=== PATIENT | male | born 1940 | race Caucasian/White ===

== ENCOUNTER 2016-07-22 07:23 | Day surgery (SDC) | payer MEDICARE, OTHER ==
[2016-07-22] VITALS (21 sets, daily range): BP systolic 102–169; BP diastolic 61–116
[~2016-07-22] VITALS: Ht 180.3 cm; Wt 95.3 kg
[~2016-07-22 07:23] MED LIST: ALN70T PO; ASPI-983 PO; ASPI325T32 PO; CLOP75TA PO; DCS100C PO; DNPZ10T PO; FURO-124 PO; FURO40TA4 PO; GLUC1000 PO; GLUC500T10 PO; GLUC750T PO; HYDR-757 PO; HYDR118S10 PO; LAMO100T69 PO; LEVE500T99 PO; METO-270 PO; MTP25TSR PO; OMEG-160 PO; OMG1KC PO; PARO40TA47 PO; POTA-51 PO; SIMV40TA2 PO; SIMV40TA4; SIMV40TA4 PO; WARF-48; WARF-48 PO; [UNRECOGNIZED DRUG - CODE] PO
[2016-07-22 07:53] LABS: MEAN PLATELET VOLUME 9.8 FL (7.4-10.4); RED BLOOD COUNT 4.22 10^6/uL (4.35-5.85); RED CELL DISTRIBUTION WIDTH 14.9 % (10.0-14.5); WHITE BLOOD COUNT 10.1 10^3/uL (4.3-11.0)
[2016-07-22 07:57] LABS: BILIRUBIN,URINE NEGATIVE (NEGATIVE); KETONES,URINE NEGATIVE (NEGATIVE); LEUKOCYTE ESTERASE ,URINE NEGATIVE (NEGATIVE); NITRITE,URINE NEGATIVE (NEGATIVE); PH,URINE 6 (5-9); PROTEIN,URINE 2+ (NEGATIVE); UROBILINOGEN,URINE 1 MG/DL (NORMAL)
[2016-07-22] MEDS ORDERED: NS IV 1000 ML 1,000 ML ONE (07:58)
[2016-07-22] MEDS ORDERED: proPOfol 200 MG/20 ML (DIPRIVAN) VIAL IV ONE (07:58)
[2016-07-22 08:06] LABS: INR 3.7 (0.8-1.4); PROTHROMBIN TIME PATIENT 36.9 SEC (12.2-14.7)
[2016-07-22 08:13] LABS: ALBUMIN 3.6 G/DL (3.2-4.5); BILIRUBIN,TOTAL 1.4 MG/DL (0.1-1.0); CALCIUM 8.6 MG/DL (8.5-10.1); CREATININE SERUM 1.32 MG/DL (0.60-1.30); POTASSIUM 4.1 MMOL/L (3.6-5.0); TOTAL PROTEIN 6.1 G/DL (6.4-8.2)
[2016-07-22] MEDS ORDERED: NS IV 1000 ML 1,000 ML IV SCH (08:20)
[2016-07-22] MEDS ORDERED: NS IV 1000 ML 1,000 ML IV ONE (08:30)
--- NOTE | 2016-07-22 09:05 | Diagnostic Imaging Report ---
Portable upright radiograph of the chest. INDICATION: Hypertension. Coronary artery disease. FINDINGS: The heart size is moderately enlarged. There is patchy left basilar infiltrate and/or atelectasis. Small left pleural effusion is present. This is similar to 07/09/16 exam accounting for technique differences. The right lung demonstrates no significant focal consolidation. There are multiple bilateral rib fractures with deformity seen. No pneumothorax. The mediastinum and carlos appear unremarkable. IMPRESSION: 1. Cardiomegaly without overt failure. 2. Patchy infiltrates or atelectasis in the left lung base with a small left effusion similar to 07/09/2016 exam. Dictated by: Dictated on workstation # [id number]
--- NOTE | 2016-07-22 09:07 | Cardiac Procedure Note-CS/ASA ---
Pre-Procedure Note Pre-Op Procedure Note H&P Reviewed The H&P was reviewed, patient examined and no changes noted. Date H&P Reviewed: Jul 22, 2016 Time H&P Reviewed: 09:07 Conscious Sedation Pre-Proced Time Reviewed: :07 ASA Class: 3 Airway Mallampati Classification: ([place] appropriate class) I. II. III, IV Lungs Heart ASA score ASA 1: a normal healthy patient ASA 2: a patient with a mild systemic disease (mid diabetes, controlled hypertension, obesity x ASA 3: a patient with a severe systemic disease that limits activity (angina , COPD, prior Myocardial infarction) ASA 4: a patient with an incapacitating disease that is a constant threat to life (CHF, renal failure) ASA 5: a moribund patient not expected to survive 24 hrs. (ruptured aneurysm) ASA 6: a declared brain patient whose organs are being harvested. For emergent operations, add the letter E after the classification Grade 3 Sedation Plan: Analgesia, Amnesia, Plan communicated to team members, Discussed options with patient/fam, Discussed risks with patient/fam Note The patient is an appropriate candidate to undergo the planned procedure, sedation, and anesthesia. The patient immediately re-assessed prior to indication. TONY MOISE MD Jul 22, 2016 9:07 am
[2016-07-22] MEDS ORDERED: OMEG-160 PO ×2 (09:16)
[2016-07-22] MEDS ORDERED: LEVE500T6 PO (09:16)
[2016-07-22] MEDS ORDERED: GLUC500T PO ×2 (09:16)
[2016-07-22] MEDS ORDERED: PARO40TA3 PO (09:16)
[2016-07-22] MEDS ORDERED: ASPI-983 PO (09:16)
[2016-07-22] MEDS ORDERED: ALEN70TA47 PO ×2 (09:16)
[2016-07-22] MEDS ORDERED: LAMO150T PO (09:16)
[2016-07-22] MEDS ORDERED: FURO40TA4 PO (09:16)
[2016-07-22] MEDS ORDERED: SIMV40TA4 PO (09:16)
[2016-07-22] MEDS ORDERED: WARF-48 PO (09:16)
--- NOTE | 2016-07-22 09:50 | Anesthesia-Procedure Note ---
Procedure Start/Stop Time Date of Procedure: Jul 22, 2016 Start Time: 09:18 Stop Time: 09:35 Procedures/Interventions Procedures Called to lab scientist for sedation for DARELL/Cardioversion. A total of 90 mg propofol given in divided doses. Pt tolerated well. See nurses notes for vital signs. MELISSA DUNCAN CRNA Jul 22, 2016 09:50
[2016-07-22] MEDS ORDERED: LEVETIRACETAM 500 MG (KEPPRA) TAB PO SCH ×2 (11:00→21:00)
--- NOTE | 2016-07-22 11:17 | TEE REPORT ---
DATE OF PROCEDURE: 07/22/2016 DARELL WITH ELECTRICAL CARDIOVERSION BRIEF HISTORY: Mr. Townsend is a 75-year-old gentleman with atrial fibrillation and rapid ventricular response, noted to have tachycardia and generalized fatigue, loss of energy. I decided to proceed with DARELL and electrical cardioversion. PROCEDURE NOTE: After explaining the procedure to the patient, all pros and cons were explained. All questions were answered. The patient was placed on the left lateral decubitus position. Oropharynx and anesthetized, conscious sedation achieved. The patient had a DARELL probe introduced through the mouth to the esophagus and then into the stomach, multiple views were obtained. At the end of the procedure, DARELL probe was removed. No complication noted. FINDINGS: 1. The left ventricle is prominent with diffuse left ventricular hypokinesia. Systolic function is reduced. Estimated ejection fraction 35%. 2. The left atrium is dilated. Left atrial appendage is dilated. No clot or thrombus were seen within the left atrium or left atrial appendage. 3. The right atrium and right ventricle are prominent. No clot or thrombus were seen within the right side. 4. Intra-atrial septum was evaluated using both color Doppler flow and agitated saline as a contrast medium. No shunt was noted. 5. Left atrial appendage is dilated low velocity by Doppler. No clot or thrombus were seen. 6. Mitral valve is calcified. There is no mitral valve stenosis. Moderate mitral regurgitation noted by color Doppler flow. 7. Aortic valve is trileaflet, calcified valve with moderate aortic regurgitation. No aortic valve stenosis. 8. Tricuspid valve is normal in morphology with mild tricuspid regurgitation. 9. Pulmonic valve is functioning normally. 10. No pericardial effusion. CONCLUSION: 1. Diffuse left ventricular hypokinesia with estimated ejection fraction 35%. 2. Dilated left atrium left atrial appendage with low velocity by Doppler. No clot or thrombus were seen. 3. Moderate mitral regurgitation. Moderate aortic regurgitation. 4. No shunt was noted. ELECTRICAL CARDIOVERSION: The patient was sedated with the assistance of anesthesia. DC cardioversion was delivered using 120 joules. It was successful in terminating atrial fibrillation. The patient converted to sinus rhythm. CONCLUSION: Successful electrical cardioversion in terminating atrial fibrillation. Job ID: [id number] Dictated Date: 07/22/2016 10:34:57 Rack Maker Date: 07/22/2016 11:09:25/owen
--- NOTE | 2016-07-22 11:59 | Diagnostic Imaging Report ---
EXAMINATION: Ultrasound of the liver. INDICATION: Elevated LFT. FINDINGS: The visualized portions of the pancreas appear unremarkable. The liver has a fairly homogeneous parenchyma with no focal mass. There s flow in the portal vein. The CBD is 0.7 CM in caliber, at the upper limits of normal for the patient's age. The gallbladder demonstrate wall thickening up to 8 mm. There is a stone in the gallbladder neck without mobility identified. No pericholecystic fluid seen. Sonographic Engel sign is reportedly negative. The right kidney is 13 CM in length with no hydronephrosis or focal lesion. Trace amount of perihepatic fluid is seen. IMPRESSION: Gallstone lodged in the gallbladder neck with gallbladder wall thickening noted suggestive of chronic cholecystitis. Dictated by: Dictated on workstation # [id number]
[2016-07-22] MEDS: ENALAPRIL 2.5 MG (VASOTEC) TAB PO SCH (12:05)
[2016-07-22] MEDS: ASPIRIN E.C. 81 MG (ECOTRIN) TAB PO SCH (12:06)
[2016-07-22] MEDS ORDERED: PATIENT MAY USE OWN MEDS, ALL MC SCH (12:45)
[2016-07-22] MEDS ORDERED: FUROSEMIDE 40 MG (LASIX) TAB PO SCH (17:00)
[2016-07-22] MEDS ORDERED: warFARin 5 MG (COUMADIN) TAB PO SCH ×2 (18:00)
[2016-07-22] MEDS: FUROSEMIDE 40 MG (LASIX) TAB PO SCH (18:10)
[2016-07-22] MEDS: CARVEDILOL 3.125 MG (COREG) TABLET PO SCH (19:56)
[2016-07-22] MEDS: LAMOTRIGINE 150 MG PO SCH (19:57)
[2016-07-22] MEDS: LEVETIRACETAM 500 MG (KEPPRA) TAB PO SCH (19:57)
[2016-07-23] VITALS (9 sets, daily range): BP systolic 113–156; BP diastolic 78–93
[2016-07-23 04:42] LABS: ALBUMIN 3.4 G/DL (3.2-4.5); BILIRUBIN,TOTAL 1.3 MG/DL (0.1-1.0); CALCIUM 8.3 MG/DL (8.5-10.1); CREATININE SERUM 1.29 MG/DL (0.60-1.30); POTASSIUM 4.1 MMOL/L (3.6-5.0); TOTAL PROTEIN 5.5 G/DL (6.4-8.2)
--- NOTE | 2016-07-23 06:57 | Cardiology Discharge Summary ---
Diagnosis/Chief Complaint Date of Admission July 22, 2016 Date of Discharge July 23 2016 Admission Diagnosis Atrial fibrillation Hypertension Shortness of breath Fatigue Discharge Diagnosis Atrial fibrillation Congestive heart failure, acute left ventricular systolic dysfunction, nonischemic cardiomyopathy, ejection fraction 35 percent Cholecystitis Hypertension Shortness of breath Chief Complaint/HPI Chief Complaint/HPI 75-year-old gentleman with paroxysmal atrial fibrillation, admitted for DARELL with electrical cardioversion. Underwent the procedure without any complication , maintained in sinus rhythm. During the admission labs noted to have elevated liver enzymes, ultrasound was done which showed gallstones, Dr. Johnston was consulted who will arrange for possible endoscopy and cholecystectomy which will be done as an outpatient. He is feeling well, maintained sinus rhythm, plan to discharge today Discharge Summary Hospital Course Hospital Course Atrial fibrillation, status post electrical cardioversion after DARELL, currently in sinus rhythm, plan for discharge home today Congestive heart failure, chronic left ventricular systolic dysfunction, compensated, ejection fraction 35 percent noted on DARELL probably secondary to atrial fibrillation, nonischemic cardiomyopathy, started on low-dose beta blockers and low-dose SARAH inhibitor and we will monitor his tolerance and response. Elevated liver enzymes, ultrasound of the liver was done which showed stone in the gallbladder, Dr. Johnston was consulted, planning to see Dr. Colmenares tomorrow for endoscopy and ultrasound, possible cholecystectomy next week. Simvastatin was held, and fish oil was held Hypertension, good control, continue current medication monitor Hyperlipidemia, discontinue simvastatin due to elevated liver enzymes, monitor closely. Next COPD/obstructive sleep apnea using C Pap [facility] Laboratory Tests 07/22/16 07:40: Activated Partial Thromboplast Time 39H, Alanine Aminotransferase (ALT/SGPT) 669H, Aspartate Amino Transf (AST/SGOT) 666H, Blood Urea Nitrogen 31H, Creatinine 1.32H, Glucose Level 109H, HDL Cholesterol 30L, Hematocrit 39L, Hemoglobin 12.5L, INR Comment 3.7H, Prothrombin Time 36.9H, Red Blood Count 4.22L, Red Cell Distribution Width 14.9H, Total Bilirubin 1.4H, Total Protein 6.1L, Urine Hyaline Casts 2-5H, Urine Other MOD SPERMH, Urine Protein 2+H, Urine Specific [place] 1.015L 07/23/16 03:53: Alanine Aminotransferase (ALT/SGPT) 615H, Aspartate Amino Transf (AST/SGOT) 469H , Blood Urea Nitrogen 32H, Total Bilirubin 1.3H, Total Protein 5.5L, Calcium Level 8.3L Procedures None. Discharge Physical Examination Allergies: Coded Allergies: No Known Drug Allergies (Unverified , 07/06/16) Vitals & I&Os Vital Signs Date Time Temp Pulse Resp B/P Pulse Ox O2 Delivery O2 Flow Rate FiO2 07/23/16 06:00 71 22 140/78 100 NIV/CPAP 07/23/16 04:00 97.9 07/22/16 21:00 21 07/22/16 09:22 4.00 General Appearance: Alert, Oriented X3, Cooperative, No Acute Distress HEENT: Atraumatic, PERRLA Respiratory: Clear to Auscultation, Normal Air Movement Cardiovascular: Regular Rate, Normal S1, Normal S2, No Murmurs Abdominal: Normal Bowel Sounds, Soft, No Tenderness, No Hepatosplenomegaly, No Masses Extremities: No Clubbing, No Cyanosis, No Edema, Normal Pulses, No Tenderness/ Swelling Skin: No Rashes, No Breakdown, No Significant Lesion Neuro: Normal Gait, Normal Speech, Strength at 5/5 X4 Ext, Normal Tone, Sensation Intact, Cranial Nerves 3-12 NL, Reflexes 2+ Psych/Mental Status: Mental Status NL, Mood NL Discharge Home Medications Reviewed and agree with Discharge Medication list on patient's Discharge Instruction sheet Instructions to Patient/Family Please see electonic discharge instructions given to patient. TONY MOISE MD Jul 23, 2016 06:57
[2016-07-23] MEDS ORDERED: ENAL2.5T PO ×2 (06:59)
[2016-07-23] MEDS ORDERED: CARV3.122 PO ×2 (06:59)
[2016-07-23] MEDS: CARVEDILOL 3.125 MG (COREG) TABLET PO SCH (08:21)
[2016-07-23] MEDS: ASPIRIN E.C. 81 MG (ECOTRIN) TAB PO SCH (08:21)
[2016-07-23] MEDS: FUROSEMIDE 40 MG (LASIX) TAB PO SCH (08:22)
[2016-07-23] MEDS: LEVETIRACETAM 500 MG (KEPPRA) TAB PO SCH (08:22)
[2016-07-23] MEDS: LAMOTRIGINE 150 MG PO SCH (08:22)
[2016-07-23] MEDS ORDERED: ASPIRIN E.C. 81 MG (ECOTRIN) TAB PO SCH (09:00)
--- NOTE | 2016-07-23 09:55 | CONSULTATION REPORT ---
DATE OF CONSULTATION: 07/22/2016 DIAGNOSES: 1. Gallstones. 2. Chronic cholecystitis. 3. Elevated liver enzymes. I have been asked by Dr. Murdock to see the gentleman admitted with new onset of atrial fibrillation, requiring cardioversion. During the evaluation, his liver enzymes, especially, transaminases were found to be elevated. Subsequent ultrasound of the right upper quadrant has confirmed gallstones with thickening of the gallbladder wall, indicating chronic cholecystitis. Common bile duct was slightly dilated at about 7 mm in diameter. It is therefore reasonable to consider choledocholithiasis. He denies any specific symptoms of gallstones. He has an extensive medical history including coronary artery intervention and peripheral vascular reconstruction. He is currently on Eliquis following cardioversion. EXAMINATION: On examination, he is slightly short of breath. His vital signs are stable. ABDOMEN: Soft and nontender. There is no evidence of acute cholecystitis. There is no ventral or inguinal hernia. ASSESSMENT: Gentleman with gallstones and elevated liver enzymes. Cardiac comorbidity. RECOMMENDATIONS/PLAN: It is reasonable to evaluate his common bile duct using a less invasive approach with endoscopic ultrasound. This has been arranged for 07/24/2016. Subsequently, he would undergo an elective cholecystectomy using robotic assistance. Dr. Murdock feels that Eliquis could be withheld for 48 hours prior to cholecystectomy. I have discussed the operative details including the expected recovery, complications of bile leak, etc. with him and his daughter, who was at the bedside. He seems to understand and is willing to proceed with the plan. Job ID: [id number] Dictated Date: 07/22/2016 16:21:00 Audio Visual Arts Director Date: 07/23/2016 09:50:24/owen KEVIN
[2016-07-23] MEDS: ENALAPRIL 2.5 MG (VASOTEC) TAB PO SCH (09:56)
[2016-07-28] MEDS ORDERED: HYDR-3812 PO ×2 (10:17)
== END 2016-07-23 12:35 ==
LOC: CATH 07:23 → ICU 10:20 → CATH 07-23 12:35
PROVIDERS: ATTEND Internal Medicine Cardiovascular Disease
DX: I48.0 Paroxysmal atrial fibrillation (principal); I50.23 Acute on chronic systolic (congestive) heart failure; I10 Essential (primary) hypertension; E78.5 Hyperlipidemia, unspecified; I42.9 Cardiomyopathy, unspecified; K80.20 Calculus of gallbladder without cholecystitis without obstruction; I08.0 Rheumatic disorders of both mitral and aortic valves; I71.2 Thoracic aortic aneurysm, without rupture; Z79.01 Long term (current) use of anticoagulants; Z79.899 Other long term (current) drug therapy; Z87.891 Personal history of nicotine dependence; I25.10 Atherosclerotic heart disease of native coronary artery without angina pectoris; Z95.5 Presence of coronary angioplasty implant and graft; Z95.820 Peripheral vascular angioplasty status with implants and grafts
CPT/HCPCS: 36415; 71010; 76705; 80053; 80061; 81000; 85027; 85610; 85730; 87081; 92960; 93005; 93312; 93320; 93325

== ENCOUNTER 2016-07-24 13:28 | Outpatient (RCR) | payer MEDICARE, OTHER ==
[~2016-07-24 13:28] MED LIST changes: +ALEN70TA47 PO; +CARV3.122 PO; +ENAL2.5T PO; +GLUC500T PO; +LAMO150T PO; +LEVE500T6 PO; +PARO40TA3 PO
--- OUTSIDE RECORDS SUMMARY | 2016-07-24 13:33 | XMS REPORT | Continuity of Care Document ---
Author Author [facility] Organization [facility] Address Unknown Phone Unavailable Care Team Providers Care Ceo And Founder Name Role Phone RANJIT CHAPMAN MD PCP Insurance Providers Payer Name Policy Number Subscriber Name Relationship Wps Medicare [id number] Brayden Gee 18 Self / Same As Patient [employer] [id number] Brayden Gee 18 Self / Same As Patient Advance Directives Directive Response Recorded Date/Time Advance Directives No 07/22/16 8:44am Health Care Power of Barrel Tester No 07/22/16 8:44am Organ Donor No 07/22/16 8:44am Resuscitation Status Full Code 07/22/16 8:44am Problems Active Problems Medical Problem Onset Date Status Atrial fibrillation Unknown Acute Constipation Unknown Acute Dyspnea Unknown Acute Encounter for monitoring coumadin therapy Unknown Acute Fall Unknown Acute Hypokalemia Unknown Acute Lightheadedness Unknown Acute New onset atrial fibrillation Unknown Acute Pulmonary edema Unknown Acute Renal insufficiency Unknown Acute Rib fracture Unknown Acute Rib fracture Unknown Acute Shortness of breath Unknown Acute Medications Current Home Medications Medication Dose Units Route Directions Days/Qty Instructions Start Date Paroxetine Hcl 40 Mg 40 Mg Oral Daily 01/06/09 Lamotrigine 100 Mg 150 Mg Oral Twice A Day 01/06/09 Alendronate Sodium 70 Mg 70 Mg Oral Wednesday01/06/09 Calcium Carbonate/Vitamin D3 1 Each 600 Mg Oral Daily 01/06/09 Donepezil Hcl 10 Mg 10 Mg Oral Bedtime 01/06/09 Levetiracetam 500 Mg 1,500 Mg Oral Twice A Day NOT TO USE GENERIC 08/04 Simvastatin 40 Mg 40 Mg Oral Bedtime 07/06/16 Warfarin Sodium 5 Mg 5 Mg Oral Daily 90 07/06/16 Metoprolol Succinate 25 Mg 12.5 Mg Oral Daily 30 Days 07/06/16 Aspirin 81 Mg 81 Mg Oral Daily 30 Days 07/06/16 [place]-3/Dha/Epa/Fish Oil 1 Each 1 Each Oral Three Times A Day 30 Days 07/06/16 Glucosamine Hcl 500 Mg 500 Mg Oral Daily 30 Days 07/06/16 Furosemide 40 Mg 40 Mg Oral Twice A Day 30 07/07/16 Potassium Chloride 20 Meq 20 Meq Oral Daily 14 07/07/16 Past Home Medications Medication Directions Ordered Status Glucosamine Sulfate 750 Mg Tablet, 750 Mg Oral Twice A Day 01/06/09 Discontinued Metoprolol Succinate (Metoprolol Er 25MG) 25 Mg Tab, 6.25 Mg Oral Daily 01/06 Discontinued Furosemide (Lasix) 40 Mg Tablet, 40 Mg Oral Daily 01/06/09 Discontinued Simvastatin 40 Mg Tablet, 40 Mg Oral Bedtime 01/06/09 Discontinued Aspirin 325 Mg Tablet.dr, 325 Mg Oral Daily 01/06/09 Discontinued Clopidogrel Bisulfate 75 Mg Tablet, 1 Each Oral Bedtime 09/24/10 Discontinued Glucosamine Sulfate 1,000 Mg Capsule, 1000 Mg Oral Daily At Noon 09/25/10 Discontinued Fish Oil 1,000 Mg Cap, 1000 Mg Oral Daily 11/20/11 Discontinued Glucosamine Hcl 500 Mg Tablet, 500 Mg Oral Three Times A Day 11/20/11 Discontinued Acetaminophen/Hydrocodone Bitart 1 Each Tablet, 1 Each Oral Every 6 Hours as needed for Pain 01/03/14 Discontinued Hydrocodone Bit/Acetaminophen 1 Each Tablet, 1 Ea Oral Every 6 Hours as needed for Severe Pain 01/22/15 Discontinued Docusate Sodium 100 Mg Cap, 100 Mg Oral Twice A Day 01/22/15 Discontinued Simvastatin 40 Mg Tablet, 07/06/16 Discontinued Warfarin Sodium 5 Mg Tablet, 07/06/16 Discontinued Social History Social History Problem Response Recorded Date/Time Alcohol Use Denies Use 01/22/2015 7:23pm Recreational Drug Use No 01/22/2015 7:23pm Recent Foreign Travel No 07/22/2016 8:43am Recent Infectious Disease Exposure No 07/22/2016 8:43am Smoking Status Former Smoker 07/22/2016 8:44am Type Used Cigarettes 07/22/2016 8:44am Recent Hopitalizations No 07/09/2016 12:08am Query Response Start Date Stop Date Smoking Status Former Smoker 07/12/1964 Hospital Discharge Instructions Current inpatient/outpatient. Discharge instructions are currently unavailable. Plan of Care Prescriptions Functional Status No functional status results. Allergies, Adverse Reactions, Alerts No known allergies. Immunizations No immunization records. Vital Signs Acute Vital Signs Vital Response Date/Time Temperature (Fahrenheit) 97.6 degrees F (97.6 - 99.5) 07/09/2016 2:12am Temperature (Calculated Celsius) 36.01535 degrees C (36.4 - 37.5) 07/09/2016 2:12am Temperature Source Temporal 07/09/2016 2:12am Pulse Rate (adult) 108 bpm (60 - 90) 07/09/2016 2:12am Respiratory Rate 24 bpm (12 - 24) 07/09/2016 2:12am O2 Sat by Pulse Oximetry 94 % (88 - 100) 07/09/2016 2:12am Blood Pressure 142/104 mm Hg 07/09/2016 2:12am Blood Pressure Mean 109 mm Hg 07/09/2016 12:08am Pain Numeric Pain Scale 0-No Pain 07/09/2016 2:12am Height (Feet) 5 feet 07/22/2016 8:45am Height (Inches) 11.00 inches 07/22/2016 8:45am Height (Calculated Centimeters) 180.974935 cm 07/22/2016 8:45am Weight (Pounds) 218 pounds 07/22/2016 8:45am Weight (Ounces) 0.0 oz 07/22/2016 8:45am Weight (Calculated Grams) 22497.14 gm 07/22/2016 8:45am Weight (Calculated Kilograms) 98.593775 kilograms 07/22/2016 8:45am Calculated BMI 30.4 07/22/2016 8:45am Capillary Refill Capillary Refill Less Than 3 Seconds 07/09/2016 12:08am Results Laboratory Results Test Name Result Units Flags Reference Collection Date/Time Result Date/ Time Comments White Blood Count 8.1 10^3/uL 4.3-11.0 07/07/2016 4:45am 07/07/2016 5: 44am Red Blood Count 3.78 10^6/uL L 4.35-5.85 07/07/2016 4:45am 07/07/2016 5: 44am Hemoglobin 11.6 G/DL L 13.3-17.7 07/07/2016 4:45am 07/07/2016 5:44am Hematocrit 36 % L 40-54 07/07/2016 4:45am 07/07/2016 5:44am Mean Corpuscular Volume 94 FL 80-99 07/07/2016 4:45am 07/07/2016 5: 44am Mean Corpuscular Hemoglobin 31 PG 25-34 07/07/2016 4:45am 07/07/2016 5: 44am Mean Corpuscular Hemoglobin Concent 33 G/DL 32-36 07/07/2016 4:45am 5:44am Red Cell Distribution Width 14.9 % H 10.0-14.5 07/07/2016 4:45am 2015 5:44am Platelet Count 181 10^3/uL 130-400 07/07/2016 4:45am 07/07/2016 5:44am Mean Platelet Volume 9.8 FL 7.4-10.4 07/07/2016 4:45am 07/07/2016 5: 44am Neutrophils (%) (Auto) 54 % 42-75 07/07/2016 4:45am 07/07/2016 5:44am Lymphocytes (%) (Auto) 33 % 12-44 07/07/2016 4:45am 07/07/2016 5:44am Monocytes (%) (Auto) 11 % 0-12 07/07/2016 4:45am 07/07/2016 5:44am Eosinophils (%) (Auto) 2 % 0-10 07/07/2016 4:45am 07/07/2016 5:44am Basophils (%) (Auto) 0 % 0-10 07/07/2016 4:45am 07/07/2016 5:44am Neutrophils # (Auto) 4.4 X 10^3 1.8-7.8 07/07/2016 4:45am 07/07/2016 5: 44am Lymphocytes # (Auto) 2.7 X 10^3 1.0-4.0 07/07/2016 4:45am 07/07/2016 5: 44am Monocytes # (Auto) 0.9 X 10^3 0.0-1.0 07/07/2016 4:45am 07/07/2016 5: 44am Eosinophils # (Auto) 0.2 10^3/uL 0.0-0.3 07/07/2016 4:45am 07/07/2016 5 :44am Basophils # (Auto) 0.0 10^3/uL 0.0-0.1 07/07/2016 4:45am 07/07/2016 5: 44am Prothrombin Time 17.7 SEC H 12.2-14.7 07/07/2016 4:45am 07/07/2016 5: 52am INR Comment 1.5 H 0.8-1.4 07/07/2016 4:45am 07/07/2016 5:52am INTERPRETIVE DATA SUGGESTED THERAPEUTIC RANGE FOR INR'S: VENOUS THROMBOSIS, PULMONARY EMBOLISM, OR PREVENTION OF SYSTEMIC EMBOLISM (EG. IN ATRIAL FIBRILLATION): 2.0 - 3.0 MECHANICAL PROSTHETIC HEART VALVES: 2.5 - 3.5* *NOTE: INR'S UP TO 4.5 MAY BE NECESSARY IN SELECTED GROUPS OF HIGH RISK PATIENTS. [employer] [place] [employer] CONSENSUS CONFERENCE ON ANTITHROMBOTIC THERAPY (2000). Activated Partial Thromboplast Time 31 SEC 24-35 07/06/2016 5:33am 6:00am D-Dimer 1.24 UG/ML H 0.00-0.49 07/06/2016 5:33am 07/06/2016 6:05am Sodium Level 139 MMOL/L 135-145 07/07/2016 4:45am 07/07/2016 6:05am Potassium Level 3.4 MMOL/L L 3.6-5.0 07/07/2016 4:45am 07/07/2016 6:05am Chloride Level 105 MMOL/L 98-107 07/07/2016 4:45am 07/07/2016 6:05am Carbon Dioxide Level 23 MMOL/L 21-32 07/07/2016 4:45am 07/07/2016 6: 05am Anion Gap 11 MMOL/L 5-14 07/07/2016 4:45am 07/07/2016 6:05am Blood Urea Nitrogen 18 MG/DL 7-18 07/07/2016 4:45am 07/07/2016 6:05am Creatinine 0.88 MG/DL 0.60-1.30 07/07/2016 4:45am 07/07/2016 6:05am BUN/Creatinine Ratio 20 07/07/2016 4:45am 07/07/2016 6:05am Estimat Glomerular Filtration Rate > 60 07/07/2016 4:45am 2015 6:05am GFR INTERPRETIVE DATA UNITS FOR ESTIMATED GFR (eGFR): mL/min/1.73 M2 REFERENCE RANGE FOR ESTIMATED GFR (eGFR) eGFR NORMAL eGFR >60 MODERATELY DECREASED eGFR 30-59 SEVERLY DECREASED eGFR 15-29 KIDNEY FAILURE <15 (OR DIALYSIS) Glucose Level 93 MG/DL 70-105 07/07/2016 4:45am 07/07/2016 6:05am Calcium Level 8.5 MG/DL 8.5-10.1 07/07/2016 4:45am 07/07/2016 6:05am Magnesium Level 1.9 MG/DL 1.8-2.4 07/06/2016 5:33am 07/06/2016 6:17am Total Bilirubin 0.9 MG/DL 0.1-1.0 07/07/2016 4:45am 07/07/2016 6:05am Alkaline Phosphatase 76 U/L 40-136 07/07/2016 4:45am 07/07/2016 6:05am Aspartate Amino Transf (AST/SGOT) 29 U/L 5-34 07/07/2016 4:45am 2015 6:05am Alanine Aminotransferase (ALT/SGPT) 24 U/L 0-55 07/07/2016 4:45am 07/07 6:05am Troponin I < 0.30 NG/ML <0.30 07/06/2016 5:33am 07/06/2016 6:17am Myoglobin 57.3 NG/ML 10.0-92.0 07/06/2016 5:33am 07/06/2016 6:17am B-Type Natriuretic Peptide 1107.7 PG/ML H <100.0 07/06/2016 5:33am 2015 6:22am Total Protein 5.6 G/DL L 6.4-8.2 07/07/2016 4:45am 07/07/2016 6:05am Albumin 3.4 G/DL 3.2-4.5 07/07/2016 4:45am 07/07/2016 6:05am Triglycerides Level 58 MG/DL <150 07/07/2016 4:45am 07/07/2016 6:15am Cholesterol Level 81 MG/DL < 200 07/07/2016 4:45am 07/07/2016 6:15am HDL Cholesterol 35 MG/DL L 40-60 07/07/2016 4:45am 07/07/2016 6:15am LDL Cholesterol Direct 35 MG/DL 1-129 07/07/2016 4:45am 07/07/2016 6: 15am VLDL Cholesterol 12 MG/DL 5-40 07/07/2016 4:45am 07/07/2016 6:15am Lactic Acid Level 1.4 MMOL/L 0.5-2.0 07/06/2016 6:12am 07/06/2016 6: 54am C-Reactive Protein High Sensitivity 2.52 MG/DL H 0.00-0.50 07/06/2016 6: 43am 07/06/2016 7:13am Pending Laboratory Results Test Name Collection Date/Time Microbiology Results Procedure Source Result Collection Date/Time Result Date/Time Blood Culture Peripheral, Lt Hand No growth 07/06/2016 6:43am 07/07/2016 3: 46pm Blood Culture Peripheral, Not Otherwise Specified No growth 07/06/2016 6: 12am 07/07/2016 3:46pm Procedures Procedure Status Date Provider(s) Transesophageal echocardiography with cardioversion Active 07/22/16 TONY MOISE MD Tracing only of electrocardiogram Completed 07/06/16 IRVING COLÓN MD Tracing only of electrocardiogram Completed 07/08/16 LYNETTE REYNAGA Tracing only of electrocardiogram Completed 07/09/16 TIFFANY LOZA MD Transesophageal echocardiography Active 07/22/16 TONY MOISE MD Transesophageal echocardiography with contrast Active 07/22/16 TONY MOISE MD Doppler echocardiography color flow mapping Active 07/22/16 TONY MOISE MD Bidirectional continuous wave ultrasonic Doppler Active 07/22/16 TONY MOISE MD Tracing only of electrocardiogram Active 07/22/16 TONY MOISE MD Encounters Encounter Location Arrival/Admit Date Discharge/Depart Date Attending Provider Registered [facility] 07/22/16 7:23TONY Kennedy MD Departed Emergency Room [facility] 07/08/16 10:51pm 2:20am TIFFANY LOZA MD Registered Emergency Room [facility] 07/08/16 11:31am LYNETTE REYNAGA Discharged Inpatient (obs) [facility] 07/06/16 8:40am 9:01am ADILIA DALE DO
[2016-07-24 14:14] LABS: INR 2.4 (0.8-1.4); PROTHROMBIN TIME PATIENT 25.8 SEC (12.2-14.7)
[2016-07-26 12:51] LABS: INR 1.7 (0.8-1.4); PROTHROMBIN TIME PATIENT 20.1 SEC (12.2-14.7)
[2016-07-28] MEDS ORDERED: HYDR-3812 PO (10:17)
[2016-08-10] MEDS ORDERED: CARV3.122 PO (09:49)
[2016-08-10] MEDS ORDERED: ENAL2.5T PO (09:49)
[2016-08-10] MEDS ORDERED: METO-270 PO (09:49)
[2016-08-10] MEDS ORDERED: FURO40TA4 PO (09:52)
[2016-08-10] MEDS ORDERED: PANT40TA3 PO (09:52)
[2016-08-10] MEDS ORDERED: HYDR-3812 PO (09:52)
[2016-08-10] MEDS ORDERED: CEFD300C3 PO (09:52)
[2016-08-10] MEDS ORDERED: DONE10TA41 PO (09:52)
[2016-08-10] MEDS ORDERED: POTA10TA6 PO (10:31)
[2016-08-28] MEDS ORDERED: LORA2ORA PO (10:17)
[2016-08-28] MEDS ORDERED: MORP100S3 PO (10:17)
[2016-08-28] MEDS ORDERED: HYDR-3812 PO (10:17)
== END 2016-10-22 | disposition home or self-care (01) ==
LOC: LAB 13:28
PROVIDERS: ATTEND Internal Medicine Cardiovascular Disease
DX: I48.0 Paroxysmal atrial fibrillation (principal)
CPT/HCPCS: 36415; 85610

== ENCOUNTER → 2016-07-25 | Outpatient (CLI) | payer MEDICARE, OTHER ==
[~2016-07-25] MED LIST changes: +CEFD300C3 PO; +DONE10TA41 PO; +HYDR-3812 PO; +LORA2ORA PO; +MORP100S3 PO; +PANT40TA3 PO; +POTA10TA6 PO
--- OUTSIDE RECORDS SUMMARY | 2016-07-25 12:55 | XMS REPORT | Continuity of Care Document ---
Author Author [facility] Organization [facility] Address Unknown Phone Unavailable Care Team Providers Care Soda Fountain Clerk Name Role Phone RANJIT CHAPMAN MD PCP Insurance Providers Payer Name Policy Number Subscriber Name Relationship Wps Medicare [id number] Brayden Gee 18 Self / Same As Patient [employer] [id number] Brayden Gee 18 Self / Same As Patient Advance Directives Directive Response Recorded Date/Time Advance Directives No 07/22/16 8:44am Health Care Power of Sprinkling System Irrigator No 07/22/16 8:44am Organ Donor No 07/22/16 [...] 81 Mg Oral Daily 30 Days 07/06/16 [place]-3/Dha/Epa/Fish Oil 1 Each 1 Each Oral Three [...] - 99.5) 07/09/2016 2:12am Temperature (Calculated Celsius) 36.53346 degrees C (36.4 - 37.5) 07/09/2016 2:12am [...] 11.00 inches 07/22/2016 8:45am Height (Calculated Centimeters) 180.146246 cm 07/22/2016 8:45am Weight (Pounds) 218 pounds 07/22/2016 8:45am Weight (Ounces) 0.0 oz 07/22/2016 8:45am Weight (Calculated Grams) 85884.14 gm 07/22/2016 8:45am Weight (Calculated Kilograms) 98.191883 kilograms 07/22/2016 8:45am Calculated BMI 30.4 07/22/2016 [...] SELECTED GROUPS OF HIGH RISK PATIENTS. SIXTH [place] [employer] CONSENSUS CONFERENCE ON [...] Attending Provider Registered Surgical Day Care [facility] 07/22/16 7:23TONY Kennedy MD Departed Emergency Room [facility] 07/08/16 10:51pm 2:20am TIFFANY LOZA MD Registered Emergency Room [facility] 07/08/16 11:31am LYNETTE REYNAGA Discharged Inpatient (obs) [facility] 07/06/16 8:40am 9:01am ADILIA DALE DO
[2016-07-25 13:22] LABS: PROTHROMBIN TIME PATIENT 22.5 SEC (12.2-14.7)
== END ==
LOC: LAB 12:51
PROVIDERS: ATTEND Internal Medicine Cardiovascular Disease
DX: I48.0 Paroxysmal atrial fibrillation (principal)
CPT/HCPCS: 36415; 85610

== ENCOUNTER → 2016-07-27 | Outpatient (CLI) | payer MEDICARE, OTHER ==
--- OUTSIDE RECORDS SUMMARY | 2016-07-27 05:40 | XMS REPORT | Continuity of Care Document ---
Author Author [facility] Organization [facility] Address Unknown Phone Unavailable Care Team Providers Care Heating Systems Installer Name Role Phone RANJIT CHAPMAN MD PCP Insurance Providers Payer Name Policy Number Subscriber Name Relationship Wps Medicare [id number] Brayden Gee 18 Self / Same As Patient [employer] [id number] Brayden Gee 18 Self / Same As Patient Advance Directives Directive Response Recorded Date/Time Advance Directives No 07/22/16 8:44am Health Care Power of Digital Circuit Designer No 07/22/16 8:44am Organ Donor No 07/22/16 [...] 81 Mg Oral Daily 30 Days 07/06/16 [place]-3/Dha/Epa/Fish Oil 1 Each 1 Each Oral Three [...] - 99.5) 07/09/2016 2:12am Temperature (Calculated Celsius) 36.70040 degrees C (36.4 - 37.5) 07/09/2016 2:12am [...] 11.00 inches 07/22/2016 8:45am Height (Calculated Centimeters) 180.838013 cm 07/22/2016 8:45am Weight (Pounds) 218 pounds 07/22/2016 8:45am Weight (Ounces) 0.0 oz 07/22/2016 8:45am Weight (Calculated Grams) 20100.14 gm 07/22/2016 8:45am Weight (Calculated Kilograms) 98.079918 kilograms 07/22/2016 8:45am Calculated BMI 30.4 07/22/2016 [...] SELECTED GROUPS OF HIGH RISK PATIENTS. SIXTH [place] [employer] CONSENSUS CONFERENCE ON [...] Transesophageal echocardiography with cardioversion Active 07/22/16 TONY MOIES MD Tracing only of electrocardiogram Completed 07/06/16 [...] Attending Provider Registered Surgical Day Care [facility] 07/22/16 7:23TONY Kennedy MD Departed Emergency Room [facility] 07/08/16 10:51pm 2:20am TIFFANY LOZA MD Registered Emergency Room [facility] 07/08/16 11:31am LYNETTE REYNAGA Discharged Inpatient (obs) [facility] 07/06/16 8:40am 9:01am ADILIA DALE DO
== END ==
LOC: PREOP 05:36
PROVIDERS: ATTEND Surgery
DX: Z01.818 Encounter for other preprocedural examination (principal); K80.20 Calculus of gallbladder without cholecystitis without obstruction

== ENCOUNTER 2016-07-28 06:43 | Day surgery (SDC) | payer MEDICARE, OTHER ==
[~2016-07-28] VITALS: Ht 180.3 cm; Wt 96.2 kg
[2016-07-28] VITALS (15 sets, daily range): BP systolic 91–120; BP diastolic 63–91
[~2016-07-28 06:43] MED LIST changes: -CEFD300C3 PO; -DONE10TA41 PO; -HYDR-3812 PO; -LORA2ORA PO; -MORP100S3 PO; -PANT40TA3 PO; -POTA10TA6 PO
--- OUTSIDE RECORDS SUMMARY | 2016-07-28 06:47 | XMS REPORT | Continuity of Care Document ---
Author Author [facility] Organization [facility] Address Unknown Phone Unavailable Care Team Providers Care Long Distance Billing Operator Name Role Phone RANJIT CHAPMAN MD PCP Insurance Providers Payer Name Policy Number Subscriber Name Relationship Wps Medicare [id number] Brayden Gee 18 Self / Same As Patient [employer] [id number] Brayden Gee 20 Self / Same As Patient Advance Directives Directive Response Recorded Date/Time Advance Directives No 07/22/16 8:44am Health Care Power of Orthopedic Assistant No 07/22/16 8:44am Organ Donor No 07/22/16 [...] 81 Mg Oral Daily 30 Days 07/06/16 [place]-3/Dha/Epa/Fish Oil 1 Each 1 Each Oral Three [...] - 99.5) 07/09/2016 2:12am Temperature (Calculated Celsius) 36.09065 degrees C (36.4 - 37.5) 07/09/2016 2:12am [...] 11.00 inches 07/22/2016 8:45am Height (Calculated Centimeters) 180.226394 cm 07/22/2016 8:45am Weight (Pounds) 218 pounds 07/22/2016 8:45am Weight (Ounces) 0.0 oz 07/22/2016 8:45am Weight (Calculated Grams) 46953.14 gm 07/22/2016 8:45am Weight (Calculated Kilograms) 98.503710 kilograms 07/22/2016 8:45am Calculated BMI 30.4 07/22/2016 [...] SELECTED GROUPS OF HIGH RISK PATIENTS. SIXTH [place] [employer] CONSENSUS CONFERENCE ON [...] Attending Provider Registered Surgical Day Care [facility] 07/22/16 7:23TONY Kennedy MD Departed Emergency Room [facility] 07/08/16 10:51pm 2:20am TIFFANY LOZA MD Registered Emergency Room [facility] 07/08/16 11:31am LYNETTE REYNAGA Discharged Inpatient (obs) [facility] 07/06/16 8:40am 9:01am ADILIA DALE DO
--- OUTSIDE RECORDS SUMMARY | 2016-07-28 06:48 | XMS REPORT | Continuity of Care Document ---
Author Author [facility] Organization [facility] Address Unknown Phone Unavailable Care Team Providers Care Process Control Programmer Name Role Phone RANJIT CHAPMAN MD PCP Insurance Providers Payer Name Policy Number Subscriber Name Relationship Wps Medicare [id number] Brayden Gee 18 Self / Same As Patient [employer] [id number] Brayden Gee 20 Self / Same As Patient Advance Directives Directive Response Recorded Date/Time Advance Directives No 07/22/16 8:44am Health Care Power of [place] Tanner No 07/22/16 8:44am Organ Donor No 07/22/16 [...] Mg Oral Daily 30 Days 07/06/16 [place]-3/Dha/Epa/Fish Oil 1 Each 1 Each Oral Three [...] - 99.5) 07/09/2016 2:12am Temperature (Calculated Celsius) 36.35478 degrees C (36.4 - 37.5) 07/09/2016 2:12am [...] 11.00 inches 07/22/2016 8:45am Height (Calculated Centimeters) 180.209767 cm 07/22/2016 8:45am Weight (Pounds) 218 pounds 07/22/2016 8:45am Weight (Ounces) 0.0 oz 07/22/2016 8:45am Weight (Calculated Grams) 86666.14 gm 07/22/2016 8:45am Weight (Calculated Kilograms) 98.801080 kilograms 07/22/2016 8:45am Calculated BMI 30.4 07/22/2016 [...] SELECTED GROUPS OF HIGH RISK PATIENTS. SIXTH [place] [employer] CONSENSUS CONFERENCE ON [...] MD Tracing only of electrocardiogram Active 07/22/16 TNOY MOISE MD Encounters Encounter Location Arrival/Admit Date Discharge/Depart Date Attending Provider Registered Surgical Day Care [facility] 07/22/16 7:23TONY Kennedy MD Departed Emergency Room [facility] 07/08/16 10:51pm 2:20am TIFFANY LOZA MD Registered Emergency Room [facility] 07/08/16 11:31am LYNETTE REYNAGA Discharged Inpatient (obs) [facility] 07/06/16 8:40am 9:01am ADILIA DALE DO
[2016-07-28] MEDS ORDERED: ceFAZolin 2GM/50 ML DEXTROSE (PREMIX) IV ONE (07:45)
[2016-07-28] MEDS ORDERED: metroNIDAZOLE 500 MG/100 ML IVPB (PRE-MIX) IV ONE (07:45)
[2016-07-28 08:12] LABS: INR 1.5 (0.8-1.4); PROTHROMBIN TIME PATIENT 17.7 SEC (12.2-14.7)
[2016-07-28] MEDS ORDERED: BUP/EPI 0.25% 1:200,000 (MARCAINE) 30 ML VIAL ONE (08:13)
[2016-07-28] MEDS ORDERED: ONDANSETRON 4 MG/2 ML (SDV) Z0FRAN ONE ×2 (08:20→11:15)
[2016-07-28] MEDS ORDERED: proPOfol 200 MG/20 ML (DIPRIVAN) VIAL IV ONE (08:20)
[2016-07-28] MEDS ORDERED: ROCURONIUM 50 MG/5 ML (ZEMURON) VIAL IV ONE ×2 (08:20→09:11)
[2016-07-28] MEDS ORDERED: LIDOCAINE PF 2% 10 ML (XYLOCAINE) AMP ONE (08:20)
[2016-07-28] MEDS ORDERED: MIDAZOLAM 2 MG/2 ML (VERSED) VIAL ONE (08:20)
[2016-07-28] MEDS ORDERED: LACTATED RINGERS 1,000 ML IV ONE ×2 (08:20→09:53)
[2016-07-28] MEDS ORDERED: fentaNYL INJECTION 100 MCG/2 ML AMP ONE (08:20)
[2016-07-28] MEDS ORDERED: DEXAMETHASONE PF 10 MG/ML (DECADRON) VIAL ONE (08:22)
--- NOTE | 2016-07-28 08:30 | Progress Note-Pre Operative ---
Pre-Operative Progress Note H&P Reviewed The H&P was reviewed, patient examined and no changes noted. Date H&P Reviewed: Jul 28, 2016 Time H&P Reviewed: 08:29 Pre-Operative Diagnosis: Gallstones with chronic cholecystitis JACQUELINE MEANS MD Jul 28, 2016 8:30 am
[2016-07-28] MEDS: LACTATED RINGERS 1,000 ML IV PRN ×2 (08:35→10:25)
[2016-07-28] MEDS ORDERED: SEVOFLURANE (ULTANE) 15 ML INHAL SOLN ONE ×3 (09:12→10:07)
[2016-07-28] MEDS ORDERED: NS IV 1000 ML 1,000 ML ONE (09:53)
[2016-07-28] MEDS ORDERED: PHENYLEPHRINE 100 MCG/ML 10 ML (ANESTHESIA) SYR ONE (09:56)
[2016-07-28] MEDS ORDERED: PHENYLEPHRINE INJ 10 MG/ML (NEO-SYNEPHRINE 1%) ONE (09:56)
[2016-07-28] MEDS ORDERED: NEOSTIGMINE (BLOXIVERZ ) 1 MG/1ML 10 ML VIAL ONE (09:58)
[2016-07-28] MEDS ORDERED: GLYCOPYRROLATE 0.2 MG/ML (ROBINUL) 2 ML VIAL ONE (09:58)
--- NOTE | 2016-07-28 10:15 | Progress Note-Post Operative ---
Post-Operative Progess Note Pre-Operative Diagnosis Gallstones with chronic cholecystitis Post-Operative Diagnosis Gallstones with acute cholecystitis Post-Op Procedure Note Date of Procedure: Jul 28, 2016 Name of Procedure: Robotic assisted cholecystectomy Anesthesia Type Gen Estimated blood loss (mL): 100 Specimen(s) collected Gallbladder JACQUELINE MEANS MD Jul 28, 2016 10:15 am
[2016-07-28] MEDS ORDERED: HYDR-3812 PO ×2 (10:17)
--- NOTE | 2016-07-28 10:18 | Discharge Inst-Simple/Standard ---
Discharge Inst-Standard Discharge Medications New, Converted or Re-Newed RX: RX on Chart Patient Instructions/Follow Up Plan of Care/Instructions/FU: Dressings off in 48 hours. Incentive spirometry. F/U in 2 weeks Activity as Tolerated: Yes Discharge Diet: No Restrictions JACQUELINE MEANS MD Jul 28, 2016 10:18 am
[2016-07-28] MEDS ORDERED: meTOprolol 5 MG/5 ML (LOPRESSOR) VIAL ONE (10:49)
[2016-07-28] MEDS ORDERED: meTOprolol 5 MG/5 ML (LOPRESSOR) VIAL IV ONE (11:15)
[2016-07-28] MEDS ORDERED: morphine INJ 10 MG/ML 1ML (SYR OR VIAL) IVP PRN (11:15)
[2016-07-28] MEDS ORDERED: METOCLOPRAMIDE INJ 10 MG/2 ML (REGLAN) IVP ONE (11:15)
[2016-07-28] MEDS ORDERED: MEPERIDINE (DEMEROL) INJ 50 MG/ML IVP PRN (11:15)
[2016-07-28] MEDS: ONDANSETRON 4 MG/2 ML (SDV) Z0FRAN IVP PRN ×2 (11:24→11:25)
--- NOTE | 2016-07-28 11:40 | OPERATIVE REPORT ---
PROCEDURE PHYSICIAN: JACQUELINE MEANS DATE OF PROCEDURE: 07/28/2016 PREOPERATIVE DIAGNOSIS: Gallstones. POSTOPERATIVE DIAGNOSIS: 1. Gallstone. 2. Acute cholecystitis. OPERATION: Robotic assisted cholecystectomy. SURGEON: Preston ANESTHESIA: General anesthesia. BLOOD LOSS: 100 ccs. FLUIDS: One liter of crystalloids. TYPE OF WOUND: Type III (contaminant wound) INDICATION FOR THE PROCEDURE: This gentleman was found to have sludge in his gallbladder and thickening of the gallbladder wall, along with elevated liver enzymes. An ultrasound was negative for any stones in the common bile duct. Subsequently, he returned for minimally invasive cholecystectomy using robotic assistance. Informed consent was obtained after reviewing the operative details and complications of wound infection, increase risk of bleeding due to anticoagulants and bile leak. DESCRIPTION OF PROCEDURE: He was placed supine on the operative table and general anesthesia induced using an endotracheal tube. A gram of Ancef and 500 mg of Flagyl were administered intravenously as prophylaxis against wound infection. Abdomen was prepared and draped in the usual sterile manner. Pneumoperitoneum was established using a Veress needle introduced over the supra-umbilical region. A 12 mm trocar was placed and anatomy visualized using the high definition 3 dimensional laparoscope associated with da Raquel system. Under direct view, I placed an 8 mm cannula over each side of the abdomen, followed by a 5 mm trocar over the left upper quadrant. The patient was then turned in reverse Trendelenburg position with the right side tilted up. The robotic system was then docked in place. The fundus of the gallbladder was retracted using a grasper introduced via the left upper quadrant and omentum from the gallbladder. The gallbladder wall was edematous with pericholecystic fluid, confirming acute cholecystitis. Edematous tissue around the neck of the gallbladder was then incised using hook cautery, delineating the cystic duct and artery. Both were divided between locking clips. Cholecystectomy was then completed using hook cautery. Subhepatic space was then irrigated with saline and the gallbladder held up using a grasper to be retrieved using an Endo Catch bag introduced via the supraumbilical trocar site. Subsequently, the fascia over this incision was closed using number 1 Vicryl. The skin was closed using 4-0 Monocryl, in a subcuticular fashion. 0.25% Marcaine with epinephrine was infiltrated along the incisions, both preemptively and at the conclusion of the operation. He tolerated the procedure well, extubated in the operating room and taken to the recovery room in a stable. Pooler, sponges and instruments were correct at the end of the operation. Job ID: [id number] Dictated Date: 07/28/2016 10:14:27 Coroner Forensic Technician Date: 07/28/2016 11:33:54 / owen KEVIN
[2016-07-28] MEDS ORDERED: FUROSEMIDE 40 MG (LASIX) TAB PO SCH (17:00)
[2016-07-28] MEDS ORDERED: PATIENT MAY USE OWN MEDS, ALL MC SCH (18:15)
[2016-07-28] MEDS: FUROSEMIDE 40 MG (LASIX) TAB PO SCH (18:30)
[2016-07-28] MEDS: LEVETIRACETAM 500 MG (KEPPRA) TAB PO SCH (20:36)
[2016-07-28] MEDS: CARVEDILOL 3.125 MG (COREG) TABLET PO SCH (20:36)
[2016-07-28] MEDS ORDERED: NON-FORMULARY MEDICATION 1 EA EA (Lamotrigine 150 MG) PO SCH (21:00)
[2016-07-28] MEDS ORDERED: DONEPEZIL 10 MG (ARICEPT) TAB PO SCH ×2 (21:00)
[2016-07-28] MEDS ORDERED: CARVEDILOL 3.125 MG (COREG) TABLET PO SCH (21:00)
[2016-07-28] MEDS ORDERED: LEVETIRACETAM 500 MG (KEPPRA) TAB PO SCH (21:00)
[2016-07-28] MEDS: LAMOTRIGINE 150 MG TAB PO SCH (21:53)
[2016-07-29] VITALS (11 sets, daily range): BP systolic 104–127; BP diastolic 66–88
[2016-07-29] MEDS: FUROSEMIDE 40 MG (LASIX) TAB PO SCH ×2 (06:48→08:54)
[2016-07-29] MEDS ORDERED: FLUMAZENIL (ROMAZICON) 0.1 MG/ML 5 ML VIAL ONE (07:15)
[2016-07-29] MEDS ORDERED: CALCIUM CARB + VIT D 600 MG (CALCARB + D) TAB PO SCH (08:00)
[2016-07-29] MEDS: LEVETIRACETAM 500 MG (KEPPRA) TAB PO SCH (08:54)
[2016-07-29] MEDS: CARVEDILOL 3.125 MG (COREG) TABLET PO SCH (08:54)
[2016-07-29] MEDS: LAMOTRIGINE 150 MG TAB PO SCH (08:54)
[2016-07-29] MEDS ORDERED: PARoxetine 20 MG (PAXIL) TAB PO SCH (09:00)
[2016-07-29] MEDS ORDERED: NON-FORMULARY MEDICATION 1 EA EA (Paroxetine HCl 40 MG) PO SCH (09:00)
[2016-07-29] MEDS ORDERED: VITAMIN D3 PO SCH (09:00)
[2016-07-29] MEDS ORDERED: CALCIUM CARBONATE PO SCH (09:00)
[2016-07-29] MEDS ORDERED: [UNRECOGNIZED DRUG - OTHER] PO SCH (09:00)
[2016-07-29] MEDS ORDERED: ASPIRIN E.C. 81 MG (ECOTRIN) TAB PO SCH ×2 (09:00)
[2016-07-29] MEDS ORDERED: ENALAPRIL 2.5 MG (VASOTEC) TAB PO SCH ×2 (09:00)
== END 2016-07-29 10:32 | disposition home or self-care (01) ==
LOC: SDC 06:43 → ICU 12:05 → SDC 07-29 10:32
PROVIDERS: ATTEND Surgery
DX: K80.00 Calculus of gallbladder with acute cholecystitis without obstruction (principal); I10 Essential (primary) hypertension; I48.91 Unspecified atrial fibrillation; G47.33 Obstructive sleep apnea (adult) (pediatric); G40.909 Epilepsy, unspecified, not intractable, without status epilepticus; Z96.652 Presence of left artificial knee joint; Z11.2 Encounter for screening for other bacterial diseases
CPT/HCPCS: 36415; 85610; 87081; 94660; 94664

== ENCOUNTER 2016-08-07 16:35 | Inpatient (IN) | payer MEDICARE, OTHER ==
[~2016-08-07] VITALS: Ht 170.2 cm; Wt 107.7 kg
[2016-08-07 16:35] VITALS: BP 142/84
[~2016-08-07 16:35] MED LIST changes: +HYDR-3812 PO
--- OUTSIDE RECORDS SUMMARY | 2016-08-07 16:40 | XMS REPORT | Continuity of Care Document ---
Author Author [facility] Organization [facility] Address Unknown Phone Unavailable Care Team Providers Care Quantitative Associate Name Role Phone RANJIT CHAPMAN MD PCP Insurance Providers Payer Name Policy Number Subscriber Name Relationship Wps Medicare [id number] Brayden Gee 18 Self / Same As Patient [employer] [id number] Brayden Gee 20 Self / Same As Patient Advance Directives Directive Response Recorded Date/Time Advance Directives No 07/28/16 7:00am Health Care Power of Crown Ceramist No 07/28/16 7:00am Organ Donor No 07/28/16 7:00am Resuscitation Status Full Code 07/28/16 7:00am Problems Active Problems Medical Problem Onset Date [...] Units Route Directions Days/Qty Instructions Start Date Calcium Carbonate/Vitamin D3 1 Each 600 Mg Oral Daily 01/06/09 Donepezil Hcl 10 Mg 10 Mg Oral Bedtime 01/06/09 Warfarin Sodium 5 Mg 5 Mg Oral Bedtime 07/22/16 Aspirin 81 Mg 81 Mg Oral Daily 07/22/16 Levetiracetam 500 Mg 1,500 Mg Oral Twice A Day TAKES 3 (500 MG) TABLETS 07/22/16 Lamotrigine 150 Mg 150 Mg Oral Twice A Day 07/22/16 Furosemide 40 Mg 40 Mg Oral Twice A Day 07/22/16 Paroxetine Hcl 40 Mg 40 Mg Oral Daily 07/22/16 Carvedilol 3.125 Mg 3.125 Mg Oral Twice A Day 60 07/23/16 Enalapril Maleate 2.5 Mg 2.5 Mg Oral Daily 30 07/23/16 Hydrocodone/Acetaminophen 1 Each 1-2 Tab Oral 4-6HR as needed for Pain 07/28/16 Past Home Medications Medication Directions Ordered Status Glucosamine Sulfate 750 Mg Tablet, 750 Mg Oral Twice A Day 01/06/09 Discontinued Metoprolol Succinate (Metoprolol Er 25MG) 25 Mg Tab, 6.25 Mg Oral Daily 01/06 Discontinued Furosemide (Lasix) 40 Mg Tablet, 40 Mg Oral Daily 01/06/09 Discontinued Paroxetine Hcl 40 Mg Tablet, 40 Mg Oral Daily 01/06/09 Discontinued Lamotrigine 100 Mg Tablet, 150 Mg Oral Twice A Day 01/06/09 Discontinued Alendronate Sodium 70 Mg Tablet, 70 Mg Oral Wednesday01/06/09 Discontinued Simvastatin 40 Mg Tablet, 40 Mg Oral Bedtime 01/06/09 Discontinued Aspirin 325 Mg Tablet.dr, 325 Mg Oral Daily 01/06/09 Discontinued Levetiracetam 500 Mg Tab, 1500 Mg Oral Twice A Day 01/06/09 Discontinued Clopidogrel Bisulfate 75 Mg Tablet, [...] Warfarin Sodium 5 Mg Tablet, 07/06/16 Discontinued Simvastatin 40 Mg Tablet, 40 Mg Oral Bedtime 07/06/16 Discontinued Warfarin Sodium 5 Mg Tablet, 5 Mg Oral Daily 07/06/16 Discontinued Metoprolol Succinate 25 Mg Tab.er.24h, 12.5 Mg Oral Daily 07/06/16 Discontinued Aspirin 81 Mg Tablet.dr, 81 Mg Oral Daily 07/06/16 Discontinued [place]-3/Dha/Epa/Fish Oil 1 Each Capsule, 1 Each Oral Three Times A Day Discontinued Glucosamine Hcl 500 Mg Tablet, 500 Mg Oral Daily 07/06/16 Discontinued Furosemide 40 Mg Tablet, 40 Mg Oral Twice A Day 07/07/16 Discontinued Potassium Chloride 20 Meq Tablet.er, 20 Meq Oral Daily 07/07/16 Discontinued Simvastatin 40 Mg Tablet, 40 Mg Oral Bedtime 07/22/16 Discontinued [place]-3/Dha/Epa/Fish Oil 1 Each Capsule, 1000 Mg Oral Three Times A Day 07/22 Discontinued Alendronate Sodium 70 Mg Tablet, 70 Mg Oral Every Wednesday07/22/16 Discontinued Glucosamine Sulfate 500 Mg Tablet, 1500 Mg Oral Daily 07/22/16 Discontinued Social History Social History Problem Response Recorded Date/Time Alcohol Use Denies Use 01/22/2015 7:23pm Recreational Drug Use No 01/22/2015 7:23pm Recent Foreign Travel No 07/28/2016 7:00am Recent Infectious Disease Exposure No 07/28/2016 7:00am Smoking Status Former Smoker 07/28/2016 7:00am Type Used Cigarettes 07/29/2016 10:33am Recent Hopitalizations No 07/28/2016 7:00am Query Response Start Date Stop Date Smoking Status Former Smoker 07/12/1964 Hospital Discharge Instructions Patient Instructions Physician Instructions New, Converted or Re-Newed RX: RX on Chart Plan of Care/Instructions/FU: Dressings off in 48 hours. Incentive spirometry. F/U in 2 weeks Activity as Tolerated: Yes Discharge Diet: No Restrictions Care Plan Patient Instructions:: Dressings off in 48 hours. Incentive spirometry. F/U in 2 weeks Plan of Care Discharge Date 07/29/16 10:32am Instructions/Education Provided Cholecystectomy, Laparoscopic Surgery Prescriptions See Medication Section Functional Status Query Response Date Recorded Patient Orientation Person Place Time Normal For Age July 29, 2016 10:33am Comprehension Ability Understands Concepts July 29, 2016 8:00am Allergies, Adverse Reactions, Alerts No known allergies. Immunizations No immunization records. Vital Signs Acute Vital Signs Vital Response Date/Time Temperature (Fahrenheit) 96.1 degrees F (97.6 - 99.5) 07/29/2016 10:20am Temperature (Calculated Celsius) 35.40057 degrees C (36.4 - 37.5) 07/29/2016 8:00am Temperature Source Tympanic 07/29/2016 10:20am Pulse Rate (adult) 91 bpm (60 - 90) 07/29/2016 10:20am Respiratory Rate 18 bpm (12 - 24) 07/29/2016 10:20am O2 Sat by Pulse Oximetry 97 % (88 - 100) 07/29/2016 10:20am Blood Pressure 113/71 mm Hg 07/29/2016 10:20am Blood Pressure Mean 98 mm Hg 07/29/2016 6:00am Pain Numeric Pain Scale 0-No Pain 07/28/2016 7:00am Height (Feet) 5 feet 07/28/2016 7:00am Height (Inches) 11.00 inches 07/28/2016 7:00am Height (Calculated Centimeters) 180.713715 cm 07/28/2016 7:00am Weight (Pounds) 212 pounds 07/29/2016 6:00am Weight (Ounces) 0.0 oz 07/28/2016 7:00am Weight (Calculated Grams) 20323.583 gm 07/29/2016 6:00am Weight (Calculated Kilograms) 96.411785 kilograms 07/29/2016 6:00am Calculated BMI 30.4 07/28/2016 7:00am Capillary Refill Capillary Refill Less Than 3 [...] SELECTED GROUPS OF HIGH RISK PATIENTS. SIXTH [place] [employer] CONSENSUS CONFERENCE ON [...] No growth 07/06/2016 6: 12am 07/07/2016 3:46pm Pending Microbiology Results Procedure Source Collection Date/Time Procedures Procedure Status Date Provider(s) Transesophageal echocardiography with cardioversion Active 07/22/16 TONY MOISE MD Robot-assisted laparoscopic cholecystectomy Completed 07/28/16 JACQUELINE MEANS MD Tracing only of electrocardiogram Completed 07/06/16 [...] MOISE MD Tracing only of electrocardiogram Completed 07/22/16 TONY MOISE MD Tracing only of electrocardiogram Completed 07/22/16 TONY MOISE MD Encounters Encounter Location Arrival/Admit Date Discharge/Depart Date Attending Provider Departed Surgical Day Care [facility] 07/28/16 6:43am 10:32am JACQUELINE MEANS MD Registered Clinic [facility] 07/27/16 5:36am JACQUELINE MEANS MD Registered Clinic [facility] 07/25/16 12:51pm TONY MOISE MD Registered Recurring [facility] 07/24/16 1:28pm TONY MOISE MD Departed Surgical Day Care [facility] 07/22/16 7:23am 12:35pm TONY MOISE MD Departed Emergency Room [facility] 07/08/16 10:51pm 2:20am TIFFANY LOZA MD Departed Emergency Room [facility] 07/08/16 11:31am 3:59pm LYNETTE REYNAGA Discharged Inpatient (obs) [facility] 07/06/16 8:40am 9:01am ADILIA DALE DO
[2016-08-07 17:17] LABS: BASOPHILS % (AUTO) 0 % (0-10); EOSINOPHILS # (AUTO) 0.1 10^3/uL (0.0-0.3); EOSINOPHILS % (AUTO) 2 % (0-10); LYMPHOCYTES # (AUTO) 2.1 X 10^3 (1.0-4.0); LYMPHOCYTES % (AUTO) 26 % (12-44); MEAN CORPUSCULAR HEMOGLOBIN 30 PG (25-34); MEAN CORPUSCULAR HGB CONC 33 G/DL (32-36); MEAN CORPUSCULAR VOLUME 91 FL (80-99); MEAN PLATELET VOLUME 9.8 FL (7.4-10.4); MONOCYTES # (AUTO) 0.8 X 10^3 (0.0-1.0); MONOCYTES % (AUTO) 10 % (0-12); NEUTROPHILS % (AUTO) 62 % (42-75); PLATELET COUNT 221 10^3/uL (130-400); RED BLOOD COUNT 4.22 10^6/uL (4.35-5.85); WHITE BLOOD COUNT 8.1 10^3/uL (4.3-11.0)
[2016-08-07 17:21] LABS: INR 2.5 (0.8-1.4)
[2016-08-07 17:30] LABS: ALANINE AMINOTRANSFERASE 262 U/L (0-55); ALBUMIN 3.4 G/DL (3.2-4.5); ANION GAP 11 MMOL/L (5-14); ASPARTATE AMINO TRANSFERASE 113 U/L (5-34); BILIRUBIN,TOTAL 0.9 MG/DL (0.1-1.0); BLOOD UREA NITROGEN 25 MG/DL (7-18); BUN/CREATININE RATIO 25; CALCIUM 8.5 MG/DL (8.5-10.1); CARBON DIOXIDE 23 MMOL/L (21-32); CHLORIDE 102 MMOL/L (98-107); CREATININE SERUM 1.02 MG/DL (0.60-1.30); GFR ESTIMATED > 60; GLUCOSE 90 MG/DL (70-105); POTASSIUM 3.6 MMOL/L (3.6-5.0); SODIUM 136 MMOL/L (135-145); TOTAL PROTEIN 5.9 G/DL (6.4-8.2)
[2016-08-07 17:36] LABS: TROPONIN I < 0.30 NG/ML (<0.30)
--- NOTE | 2016-08-07 17:46 | Diagnostic Imaging Report ---
INDICATION: Stroke COMPARISON: January 22, 2015 TECHNIQUE: Multiple contiguous axial CT images are obtained through the head without the use of intravenous contrast dated August 07, 2016. FINDINGS: Mild atrophy. No intracranial hemorrhage. No intracranial mass, mass effect, midline shift, herniation, hydrocephalus, or extra-axial fluid collection. No definite CT evidence of an acute ischemic infarction. The orbits are unremarkable. The paranasal sinuses are clear. The calvarium and extracalvarial soft tissues are unremarkable. Mild vascular calcifications. IMPRESSION: 1. No acute intracranial abnormality. 2. Mild atrophy. If there remains clinical concern for underlying occult infarction, further evaluation with MRI of the brain could be obtained. Dictated by: Dictated on workstation # [id number]
--- NOTE | 2016-08-07 17:48 | Diagnostic Imaging Report ---
INDICATION: Shortness of air. COMPARISON: July 22, 2016. TECHNIQUE: Single frontal radiograph of the chest dated August 07, 2016. FINDINGS: The cardiac silhouette is enlarged, though stable from the prior examination. No significant pulmonary vascular congestion. Left basilar opacity with obscuration of the left hemidiaphragm, appearing slightly increased from the prior examination. The right lung appears stable. No significant right pleural effusion. Probable trace left pleural effusion. Chronic rib fractures are again noted, bilaterally. No acute osseous abnormality. IMPRESSION: 1. Stable left basilar pleural-parenchymal opacity, felt to relate to a combination of a small amount of pleural fluid with adjacent mild atelectasis and/or infiltrate. 2. Stable cardiomegaly without pulmonary vascular congestion. Dictated by: Dictated on workstation # [id number]
--- NOTE | 2016-08-07 18:19 | ED Neurological Problem ---
General Chief Complaint: Altered Mental Status Stated Complaint: SOA Nursing Triage Note: Pt. presented via ems secondary to c/o shortness of breath. Pt. was administered a breathing tx. and advised an improvement in breathing. At this time pt. presents lethargic put arousable to verbal stimuli and denies pain at this time. Nursing Sepsis Screen: No Definite Risk Source: patient, EMS Exam Limitations: no limitations (EVELIO OLIVEROS) History of Present Illness Time seen by provider: 18:15 Initial Comments 76-year-old male patient presents to the emergency department via [facility] with complaints of shortness of air the last several days. Patient was given oxygen and a nebulizer treatment at home with improvement in symptoms. Patient is very drowsy. Arouses to verbal stimuli. Patient is oriented to person, place, time, and situation. Patient recently underwent upper scopic cholecystectomy for acute cholecystitis by Dr. Johnston on . Patient was seen by Dr. Matthew in the ED on 07/08/16 with similar c/o dyspnea, SOA, dizziness. Patient denies fever, chest pain, N/V/D, headache, dizziness, slurred speech, changes in vision, or confusion. Patient has a h/o A Fib, but states he has been taking his Coumadin as ordered. Timing/Duration: other (3-4 days of increasing SOA.) (EVELIO OLIVEROS) Allergies and Home Medications Allergies Coded Allergies: No Known Drug Allergies (Unverified , 07/06/16) Home Medications Aspirin 81 Mg Tablet.dr 81 MG PO DAILY (Reported) Calcium Carbonate/Vitamin D3 1 Each Tablet 600 MG PO DAILY (Reported) Carvedilol 3.125 Mg Tablet 3.125 MG PO BID (Reported) Cefdinir 300 Mg Capsule #6 300 MG PO BID Prescribed by: ADILIA DALE on 08/10/16951 Donepezil HCl 10 Mg Tablet 30Days 10 MG PO HS Prescribed by: ADILIA DALE on 08/10/16951 Enalapril Maleate 2.5 Mg Tablet 2.5 MG PO DAILY (Reported) Furosemide 40 Mg Tablet 30Days 40 MG PO LASIXBID Prescribed by: ADILIA DALE on 08/10/16951 Hydrocodone/Acetaminophen 1 Each Tablet #30 1-2 TAB PO 4-6HR PRN PRN PAIN Prescribed by: ADILIA DALE on 08/10/16 0952 Lamotrigine 150 Mg Tablet 150 MG PO BID (Reported) Levetiracetam 500 Mg Tablet 1,500 MG PO BID (Reported) TAKES 3 (500 MG) TABLETS Pantoprazole Sodium 40 Mg Tablet.dr 30Days 40 MG PO BID@07,21 Prescribed by: ADILIA DALE on 08/10/16 0952 Paroxetine HCl 40 Mg Tablet 40 MG PO DAILY (Reported) Potassium Chloride 10 Meq Tablet.er #60 10 MEQ PO BID Prescribed by: TONY MOISE on 08/10/16 1031 Warfarin Sodium 5 Mg Tablet 5 MG PO HS (Reported) Constitutional: No chills, No dizziness, No fever, malaise ((for several weeks )) weakness (generalized weakness (for several weeks).) Eyes: Denies Blindness, Denies Blurred Vision, Denies Decreased Acuity, Denies Pain, Denies Photophobia, Denies Tunnel Vision, Denies Vision Changes Ears, Nose, Mouth, Throat: no symptoms reported Respiratory: No cough, dyspnea on exertionNo phlegm, short of breathNo stridor, No wheezing Cardiovascular: No chest pain, edema (chronic edema of the BLE.)No palpitations, No syncope Gastrointestinal: No abdominal pain, No constipation, No diarrhea, No nausea, No vomiting Genitourinary: no symptoms reported Musculoskeletal: no symptoms reported Skin: no symptoms reported Psychiatric/Neurological: Denies Cognitive Dysfunction, Denies Headache, Denies Numbness, Denies Pet[place] Mal Seizures, Denies Tingling, Denies Tonic Clonic Seizures, Denies Unable to Move Lower Ext, Denies Unable to Move Upper Ext, Denies Weakness (denies one sided weakness.) (EVELIO OLIVEROS) All Other Systems Reviewed Negative Unless Noted: Yes (Negative excepted noted.) (EVELIO OLIVEROS) Past Eprztwv-Rjrinp-Lewzei Hx Patient Social History Type Used: Cigarettes Former Smoker/When Quit: Jul 12, 1964 Recent Foreign Travel: No Contact w/Someone Who Travel: No Recent Infectious Disease Expo: No Recent Hopitalizations: Yes (gallbladder) (EVELIO OLIVEROS) Immunizations Up To Date Tetanus Booster (TDap): Unknown Date of Pneumonia Vaccine: May 13, 2015 Date of Influenza Vaccine: Apr 11, 2016 (EVELIO OLIVEROS) Seasonal Allergies Seasonal Allergies: No (EVELIO OLIVEROS) Surgeries HX Surgeries: Yes Surgeries: Cardiac, Coronary Stent, Gallbladder ((07/28/16)), Joint Replacement , Orthopedic, Tonsillectomy (EVELIO OLIVEROS) Respiratory Hx Respiratory Disorders: Yes Respiratory Disorders: Sleep Apnea (EVELIO OLIVEROS) Cardiovascular Hx Cardiac Disorders: Yes Cardiac Disorders: Coronary Artery Disease, High Cholesterol, Hypertension, Peripheral Vascular, Valvular Heart Disease (EVELIO OLIVEROS) Neurological Hx Neurological Disorders: Yes (SEIZURES PRIOR TO CAROTID SURGERY) Neurological Disorders: Dementia, Seizure Disorder, TIA (EVELIO OLIVEROS) Reproductive System Hx Reproductive Disorders: No (EVELIO OLIVEROS) Genitourinary Hx Genitourinary Disorders: Yes ("BLOCKED R KIDNEY") (EVELIO OLIVEROS) Gastrointestinal Hx Gastrointestinal Disorders: No (EVELIO OLIVEROS) Musculoskeletal Hx Musculoskeletal Disorders: Yes (ARTHRITIS IN KNEES) Musculoskeletal Disorders: Arthritis (EVELIO OLIVEROS) Endocrine Hx Endocrine Disorders: No (EVELIO OLIVEROS) HEENT HX ENT Disorders: No (EVELIO OLIVEROS) Cancer Hx Cancer: No (EVELIO OLIVEROS) Psychosocial Hx Psychiatric Problems: Yes Behavioral Health Disorders: Depression (EVELIO OLIVEROS) Integumentary HX Skin/Integumentary Disorder: No (EVELIO OLIVEROS) Blood Transfusions Hx Blood Disorders: No (EVELIO OLIVEROS) Reviewed Nursing Assessment Reviewed/Agree w Nursing PMH: Yes (EVELIO OLIVEROS) Family Medical History Significant Family History: No Pertinent Family Hx Family Medial History: Patient reports no known family medical history. (EVELIO OLIVEROS) Family Medial History: Patient reports no known family medical history. (TIFFANY MATTHEW MD) Physical Exam Vital Signs Vital Sign - Last 12Hours 08/07/16 16:35 Temp 98.0 Pulse 76 Resp 24 B/P 142/84 Pulse Ox 98 O2 Delivery Nasal Cannula O2 Flow Rate 2 FiO2 100 (TIFFANY MATTHEW MD) Vital Signs Capillary Refill : Less Than 3 Seconds (EVELIO OLIVEROS) General Appearance: no apparent distress other (Drowsy, arouses to verbal stimuli.) HEENT: PERRL/EOMI normal ENT inspection TMs normal pharynx normal other ( Patient appears to have left sided facial droop at rest; however, right sided facial droop is noted with smiling.) Neck: supple normal inspection Respiratory: lungs clear respiratory distress (mild) decreased breath sounds crackles Cardiovascular: irregularly irregular other (4+ pedal edema bilaterally (left> R).) Gastrointestinal: normal bowel sounds non tender soft other (obese abdomen. faint pink flush and central ecchymosis periumbilically. all incisions intact w/o drainage. ) Extremities: non-tender normal inspection no calf tenderness normal capillary refill pedal edema (4+ pedal edema BLE (L>R)) Neurologic/Psychiatric: no motor/sensory deficits oriented x 3No aphasia, facial droop depressed affect (depressed, flat affect.) other (drowsy, but arousable to verbal stimuli.) Crainal Nerves: normal hearing normal speech PERRLNo abnormal eye position, facial droop (Patient appears to have left sided facial droop at rest; however, right sided facial droop is noted with smiling.)No gaze palsy Coordination/Gait: normal finger to nose Motor/Sensory: no motor deficit no sensory deficit no pronator drift Skin: warm/dryNo cyanosis, No cool, No diaphoresis, No damp, ecchymosis ( periumbilical.)No jaundice, No mottled, other (faint pink flush and central ecchymosis periumbilically. all incisions intact w/o drainage. ) (EVELIO OLIVEROS) Progress/Results/Core Measures Results/Orders Lab Results Laboratory Tests Test 08/07/16 16:00 08/07/16 19:10 Range/Units Activated Partial Thromboplast Time 36 H 24-35 SEC Alanine Aminotransferase (ALT/SGPT) 262 H 0-55 U/L Albumin 3.4 3.2-4.5 G/DL Alkaline Phosphatase 109 40-136 U/L Anion Gap 11 5-14 MMOL/L Aspartate Amino Transf (AST/SGOT) 113 H 5-34 U/L B-Type Natriuretic Peptide 1965.6 H <100.0 PG/ML BUN/Creatinine Ratio 25 Basophils # (Auto) 0.0 0.0-0.1 10^3/uL Basophils (%) (Auto) 0 0-10 % Blood Urea Nitrogen 25 H 7-18 MG/DL Calcium Level 8.5 8.5-10.1 MG/DL Carbon Dioxide Level 23 21-32 MMOL/L Chloride Level 102 98-107 MMOL/L Creatinine 1.02 0.60-1.30 MG/DL D-Dimer 3.53 H 0.00-0.49 UG/ML Eosinophils # (Auto) 0.1 0.0-0.3 10^3/uL Eosinophils (%) (Auto) 2 0-10 % Estimat Glomerular Filtration Rate > 60 Glucose Level 90 70-105 MG/DL Hematocrit 38 L 40-54 % Hemoglobin 12.6 L 13.3-17.7 G/DL INR Comment 2.5 H 0.8-1.4 Lymphocytes # (Auto) 2.1 1.0-4.0 X 10^3 Lymphocytes (%) (Auto) 26 12-44 % Mean Corpuscular Hemoglobin 30 25-34 PG Mean Corpuscular Hemoglobin Concent 33 32-36 G/DL Mean Corpuscular Volume 91 80-99 FL Mean Platelet Volume 9.8 7.4-10.4 FL Monocytes # (Auto) 0.8 0.0-1.0 X 10^3 Monocytes (%) (Auto) 10 0-12 % Neutrophils # (Auto) 5.0 1.8-7.8 X 10^3 Neutrophils (%) (Auto) 62 42-75 % Platelet Count 221 130-400 10^3/uL Potassium Level 3.6 3.6-5.0 MMOL/L Prothrombin Time 27.0 H 12.2-14.7 SEC Red Blood Count 4.22 L 4.35-5.85 10^6/uL Red Cell Distribution Width 16.0 H 10.0-14.5 % Sodium Level 136 135-145 MMOL/L Total Bilirubin 0.9 0.1-1.0 MG/DL Total Protein 5.9 L 6.4-8.2 G/DL Troponin I < 0.30 <0.30 NG/ML White Blood Count 8.1 4.3-11.0 10^3/uL Urine Bacteria NEGATIVE /HPF Urine Bilirubin NEGATIVE NEGATIVE Urine Casts PRESENT /LPF Urine Clarity CLEAR Urine Color YELLOW Urine Crystals NONE /LPF Urine Culture Indicated NO Urine Glucose (UA) NEGATIVE NEGATIVE Urine Hyaline Casts 5-10 H /LPF Urine Ketones NEGATIVE NEGATIVE Urine Leukocyte Esterase NEGATIVE NEGATIVE Urine Mucus NEGATIVE /LPF Urine Nitrite NEGATIVE NEGATIVE Urine Protein 1+ H NEGATIVE Urine RBC NONE /HPF Urine RBC (Auto) NEGATIVE NEGATIVE Urine Specific [place] 1.020 1.016-1.022 Urine Urobilinogen 1 NORMAL MG/DL Urine WBC 0-2 /HPF Urine pH 6 5-9 (TIFFANY MATTHEW MD) Micro Results Microbiology 08/07/16 Blood Culture - Preliminary, Resulted No growth 08/07/16 Blood Culture - Final, Complete Staph, Coag Neg (Slagger) (EVELIO OLIVEROS) Medications Given in ED Current Medications Medications Dose Ordered Sig/Meeta Route Start Time Stop Time Status Last Admin Dose Admin Albuterol/ Ipratropium 3 ml 3 ml ONCE ONCE INH 08/07/16 18:30 08/07/16 18:31 DC 08/07/16 18:43 3 ML Ceftriaxone Sodium/Sodium Chloride 50 ml @ 100 mls/hr ONCE ONCE IV 08/07/16 19:30 08/07/16 19:59 DC 08/07/16 19:55 100 MLS/HR (TIFFANY MATTHEW MD) Vital Signs/I&O Vital Sign - Last 12Hours 08/07/16 08/07/16 08/07/16 08/07/16 16:35 16:35 16:35 18:47 Temp 98.0 Pulse 76 75 Resp 24 24 B/P 142/84 142/84 Pulse Ox 98 96 96 100 O2 Delivery Nasal Cannula Nasal Cannula Nasal Cannula O2 Flow Rate 2 4 FiO2 100 08/07/16 19:00 Pulse 77 Resp 15 B/P 148/105 Pulse Ox 100 (TIFFANY MATTHEW MD) Blood Pressure Mean: 103 Progress Note : Progress Note This patient was seen and examined with JUAN Blanchard. Specifically, his facial droop was evaluated. He seemed to have facial weakness on the right with smile but facial droop on the left at rest. There is general asymmetry of the mouth. For this reason, lateral row and he could not really be determined. Patient has no other neurologic complaints except disequilibrium with walking which has been present for weeks. The facial symptoms were not noted on first arrival but were noted later by E[facility] Oliveros and nursing staff. Patient was not aware of the facial symptoms. CT scan was unremarkable for acute abnormalities. Patient is not a TPA candidate because of the nonspecific symptoms of minor severity and unknown time of onset as well as current anticoagulation with an elevated INR. Patient appears to have other significant abnormalities including possible surgical site cellulitis, possible pneumonia, and fluid overload. I have recommended admission to [facility] who will contact the hospitalist. (TIFFANY MATTHEW MD) ECG Initial ECG Impression Date: Aug 07, 2016 Initial ECG Impression Time: 17:40 Initial ECG Rate: 81 Initial ECG Rhythm: A Fib/Flutter Initial ECG Impression: Atrial Fibrillation Comment Atrial fibrillation. A. fib new since 07/22/16 ECG. Patient was seen in the ED on 07/08/16 in atrial fibrillation. ECG reviewed by Dr. Chriss Basurto. (EVELIO OLIVEROS) Diagnostic Imaging Diagonstic Imaging: CT Plain Films/CT/US/NM/MRI: head Comments FINDINGS: Mild atrophy. No intracranial hemorrhage. No intracranial mass, mass effect, midline shift, herniation, hydrocephalus, or extra-axial fluid collection. No definite CT evidence of an acute ischemic infarction. The orbits are unremarkable. The paranasal sinuses are clear. The calvarium and extracalvarial soft tissues are unremarkable. Mild vascular calcifications. IMPRESSION: 1. No acute intracranial abnormality. 2. Mild atrophy. If there remains clinical concern for underlying occult infarction, further evaluation with MRI of the brain could be obtained. Dictated by: Dictated on workstation # [id number] Reviewed: Reviewed by Me (radiology report reviewed by me.) Diagonstic Imaging: Xray Plain Films/CT/US/NM/MRI: chest Comments FINDINGS: The cardiac silhouette is enlarged, though stable from the prior examination. No significant pulmonary vascular congestion. Left basilar opacity with obscuration of the left hemidiaphragm, appearing slightly increased from the prior examination. The right lung appears stable. No significant right pleural effusion. Probable trace left pleural effusion. Chronic rib fractures are again noted, bilaterally. No acute osseous abnormality. IMPRESSION: 1. Stable left basilar pleural-parenchymal opacity, felt to relate to a combination of a small amount of pleural fluid with adjacent mild atelectasis and/or infiltrate. 2. Stable cardiomegaly without pulmonary vascular congestion. Dictated by: Dictated on workstation # [id number] Reviewed: Reviewed by Me (radiology report reviewed by me. ) (EVELIO OLIVEROS) Departure Communication Time/Spoke to Admitting Phy: 19:[address] Dale accepts patient to her internal medicine service for IV antibiotics, nebulizer treatments, O2, and cardiology consult. Time/Spoke to Consulting Physi: 19:55 Communication/Consulting Dr. Hoskins notified of consult. Progress Notes All laboratory and diagnostic findings were discussed with the patient. Patient was noted throughout the exam to continue Shortness of air as well as continued need for O2. CT scan of the chest was negative for PE or pneumonia. Patient was given 2 Duoneb, 10 mg of albuterol nebulizer, and solumedrol without improvement of symptoms. Therefore patient will be admitted for nebulizer treatments, cardiology consult, and further evaluation. Plan for admission discussed with the patient. Patient voices understanding and agrees with the treatment plan. Patient case discussed with Dr. Matthew, he agrees with the plan of care. (EVELIO OLIVEROS) Impression Impression: Primary Impression: Left lower lobe pneumonia Additional Impressions: Dyspnea Atrial fibrillation Elevated liver function tests Pedal edema Status post laparoscopic cholecystectomy Disposition: ADMITTED INPATIENT Condition: Stable Decision to Admit Reason: Admit from ER (General) Decision to Admit/Date: Aug 07, 2016 Time/Decision to Admit Time: 19:33 (EVELIO OLIVEROS) Departure-Patient Inst. Referrals: RANJIT CHAPMAN MD (PCP/Family) Primary Care Physician Scripts Potassium Chloride (Klor-Con 10)10 Meq Tablet.er10 Meq PO BID #60 TAB Ref 3 Prov:TONY MOISE MD 08/10/16 Cefdinir 300 Mg [id number] Mg PO BID #6 CAP Prov:ADILIA DALE DO 08/10/16 Pantoprazole Sodium 40 Mg Tablet.dr40 Mg PO BID@07,21 30 Days Prov:ADILIA DALE DO 08/10/16 Furosemide 40 Mg [id number] Mg PO LASIXBID 30 Days Prov:ADILIA DALE DO 08/10/16 Donepezil HCl 10 Mg [id number] Mg PO HS 30 Days Prov:ADILIA DALE DO 08/10/16 Hydrocodone/Acetaminophen (Hydrocodon -Acetaminophen 5-325)1 Each Tablet1-2 Tab PO 4-6HR PRN PAIN #30 TAB Prov:ADILIA DALE DO 08/10/16 EVELIO OLIVEROS Aug 07, 2016 18:19 TIFFANY MATTHEW MD Aug 07, 2016 21:56
[2016-08-07] MEDS ORDERED: FUROSEMIDE 40 MG/4 ML INJ (LASIX) IV STA (18:20)
[2016-08-07] MEDS ORDERED: RT-ALBUTEROL/IPRATROPIUM 3 ML (DUONEB) VIAL INH ONE (18:30)
[2016-08-07 19:00] VITALS: BP 148/105
[2016-08-07 19:22] LABS: BILIRUBIN,URINE NEGATIVE (NEGATIVE); KETONES,URINE NEGATIVE (NEGATIVE); LEUKOCYTE ESTERASE ,URINE NEGATIVE (NEGATIVE); NITRITE,URINE NEGATIVE (NEGATIVE); PH,URINE 6 (5-9); PROTEIN,URINE 1+ (NEGATIVE); UROBILINOGEN,URINE 1 MG/DL (NORMAL)
[2016-08-07] MEDS: cefTRIAXone INJECTION 1,000 MG in NORMAL SALINE (BAXTER MINI) 50 ML IV ONE ×2 (19:35→19:55)
[2016-08-07 19:38] LABS: WBC,URINE 0-2 /HPF
[2016-08-07 20:47] VITALS: BP 134/80
[2016-08-07] MEDS ORDERED: RT-ALBUTEROL SULF 2.5 MG/3 ML PRE-MIX VIAL INH PRN (21:45)
[2016-08-07] MEDS ORDERED: ACETAMINOPHEN 500 MG TAB (TYLENOL) PO PRN (21:45)
[2016-08-07] MEDS ORDERED: ONDANSETRON 4 MG/2 ML (SDV) Z0FRAN IV PRN (21:45)
[2016-08-07] MEDS ORDERED: HYDROcodone /IBUPROFEN (VICOPROFEN) 7.5 MG/ 200 MG TAB PO PRN (21:45)
[2016-08-07] MEDS ORDERED: VANCOMYCIN 2000 MG/NS 500 ML IVPB IV ONE ×2 (22:00)
[2016-08-07 22:04] VITALS: BP 134/80
[2016-08-07] MEDS: RT-ALBUTEROL SULF 2.5 MG/3 ML PRE-MIX VIAL INH SCH (22:08)
[2016-08-07] MEDS: LEVOFLOXACIN 750 MG/150 ML D5W (PRE-MIX) IV SCH (22:16)
[2016-08-07] MEDS ORDERED: RX-HYDROCODONE/APAP 5/325 MG #4 TAB PK PO PRN (22:45)
[2016-08-07] MEDS: FUROSEMIDE 40 MG/4 ML INJ (LASIX) IV SCH (23:03)
[2016-08-07] MEDS: LEVETIRACETAM 500 MG (KEPPRA) TAB PO SCH (23:04)
[2016-08-07] MEDS ORDERED: VANCOMYCIN 1 GM ADD-VANTAGE VIAL IV ONE (23:16)
[2016-08-07] MEDS ORDERED: [UNRECOGNIZED DRUG - OTHER] ONE (23:16)
[2016-08-07] MEDS ORDERED: SODIUM CHLORIDE ONE (23:16)
[2016-08-08] VITALS: BP 137/84
[2016-08-08] MEDS: PIPER/TAZOB 4.5 GM/NS 50 ML IVPB IV SCH ×4 (00:30→05:17)
[2016-08-08] MEDS: RT-ALBUTEROL SULF 2.5 MG/3 ML PRE-MIX VIAL INH SCH ×6 (02:17→21:47)
[2016-08-08 04:00] VITALS: BP 123/83
[2016-08-08 05:31] LABS: BASOPHILS % (AUTO) 0 % (0-10); EOSINOPHILS # (AUTO) 0.1 10^3/uL (0.0-0.3); EOSINOPHILS % (AUTO) 2 % (0-10); LYMPHOCYTES # (AUTO) 2.4 X 10^3 (1.0-4.0); LYMPHOCYTES % (AUTO) 27 % (12-44); MEAN CORPUSCULAR HEMOGLOBIN 29 PG (25-34); MEAN CORPUSCULAR HGB CONC 32 G/DL (32-36); MEAN CORPUSCULAR VOLUME 92 FL (80-99); MEAN PLATELET VOLUME 9.6 FL (7.4-10.4); MONOCYTES # (AUTO) 0.8 X 10^3 (0.0-1.0); MONOCYTES % (AUTO) 9 % (0-12); NEUTROPHILS # (AUTO) 5.5 X 10^3 (1.8-7.8); NEUTROPHILS % (AUTO) 62 % (42-75); PLATELET COUNT 226 10^3/uL (130-400); RED BLOOD COUNT 4.22 10^6/uL (4.35-5.85); RED CELL DISTRIBUTION WIDTH 15.9 % (10.0-14.5); WHITE BLOOD COUNT 8.9 10^3/uL (4.3-11.0)
[2016-08-08 05:44] LABS: INR 2.2 (0.8-1.4); PROTHROMBIN TIME PATIENT 24.3 SEC (12.2-14.7)
[2016-08-08 05:52] LABS: ALANINE AMINOTRANSFERASE 219 U/L (0-55); ALBUMIN 3.2 G/DL (3.2-4.5); ANION GAP 10 MMOL/L (5-14); ASPARTATE AMINO TRANSFERASE 87 U/L (5-34); BLOOD UREA NITROGEN 21 MG/DL (7-18); BUN/CREATININE RATIO 20; CALCIUM 8.1 MG/DL (8.5-10.1); CARBON DIOXIDE 27 MMOL/L (21-32); CHLORIDE 99 MMOL/L (98-107); CREATININE SERUM 1.06 MG/DL (0.60-1.30); GFR ESTIMATED > 60; GLUCOSE 98 MG/DL (70-105); POTASSIUM 3.5 MMOL/L (3.6-5.0); SODIUM 136 MMOL/L (135-145); TOTAL PROTEIN 5.6 G/DL (6.4-8.2)
[2016-08-08] MEDS ORDERED: CATHETER FLUSH 10 ML SYR IV PRN (07:30)
[2016-08-08] MEDS ORDERED: HYDROcodone/APAP 5 MG/325 MG (LORTAB) TAB PO PRN (07:30)
[2016-08-08] MEDS: CARVEDILOL 3.125 MG (COREG) TABLET PO SCH ×2 (08:36→21:20)
[2016-08-08] MEDS: CALCIUM CARB + VIT D 600 MG (CALCARB + D) TAB PO SCH (08:36)
[2016-08-08] MEDS: ENALAPRIL 2.5 MG (VASOTEC) TAB PO SCH (08:36)
[2016-08-08] MEDS: ASPIRIN E.C. 81 MG (ECOTRIN) TAB PO SCH (08:36)
[2016-08-08] MEDS: PARoxetine 20 MG (PAXIL) TAB PO SCH (08:37)
[2016-08-08] MEDS: LEVETIRACETAM 500 MG (KEPPRA) TAB PO SCH ×2 (08:37→21:20)
[2016-08-08 08:40] VITALS: BP 121/77
[2016-08-08] MEDS ORDERED: [UNRECOGNIZED DRUG - OTHER] PO SCH (09:00)
[2016-08-08] MEDS ORDERED: NON-FORMULARY MEDICATION 1 EA EA (Lamotrigine 150 MG) PO SCH (09:00)
[2016-08-08] MEDS ORDERED: NON-FORMULARY MEDICATION 1 EA EA (Paroxetine HCl 40 MG) PO SCH (09:00)
[2016-08-08] MEDS ORDERED: CALCIUM CARBONATE PO SCH (09:00)
[2016-08-08] MEDS ORDERED: FUROSEMIDE 40 MG (LASIX) TAB PO SCH (09:00)
[2016-08-08] MEDS ORDERED: VITAMIN D3 PO SCH (09:00)
--- NOTE | 2016-08-08 09:11 | Diagnostic Imaging Report ---
INDICATION: Pneumonia. TECHNIQUE: Single view chest 4:52 AM. CORRELATION STUDY: 08/07/2016 FINDINGS: Rather pronounced severity cardiac enlargement. Vasculature is slightly increased from prior study. Bilateral pleural effusions appear adversely changed. May be associated minimal atelectasis or infiltrate lung bases, left greater than right. IMPRESSION: 1. Cardiac enlargement with vasculature slightly increased. 2. Bilateral pleural effusion along with bibasilar atelectasis or infiltrate left greater than right slightly progressed. Dictated by: Dictated on workstation # [id number]
[2016-08-08] MEDS: FUROSEMIDE 40 MG/4 ML INJ (LASIX) IV SCH ×2 (09:17→21:21)
[2016-08-08] MEDS: VANCOMYCIN 1 GM/NS 250 ML IVPB IV SCH ×4 (09:17→22:01)
[2016-08-08] MEDS ORDERED: VANCOMYCIN INJECTION 1,500 MG in NS IV 500 ML 500 ML IV SCH (10:00)
--- NOTE | 2016-08-08 10:21 | History & Physical-Hospitalist ---
HPI History of Present Illness: HPI/Chief Complaint CC: Drooping face with dyspnea HPI: This is a 76-year-old white male with cognitive deficit, atrial fibrillation, severe valvular disease and recent gallbladder disease the presents to the emergency room after EMS was called due to report of shortness of breath. Upon arrival EMS repositioned his downward position head with good resolution of obstruction but upon further evaluation once he arrived in the ER he was found to have a possible drooping face on the left side so stroke workup ensued. Chest x-ray revealed possible early infiltrate along with volume overload with elevated BNP so broad-spectrum antibiotics were initiated along with cardiology consultation for IV diuresis and he was admitted to room 431 without event. It is to note he underwent ERCP by Dr. Colmenares on 07/27/16 that revealed stones so he underwent an uncomplicated cholecystectomy by Dr. Johnston on 07/28/16 and was monitored closely but was not placed on any new medication because the family did not want another doctor to prescribe any new medicine without his primary care provider prescribing such. Considering that information we will initiate proton pump inhibitor to empirically treat ulcers. Source: patient Date Seen 08/08/16 Attending Physician Ranjit Chapman MD PCP Ranjit Chapman MD Referring Physician Date of Admission Aug 07, 2016 at 20:01 Home Medications & Allergies Home Medications Reviewed patient Home Medication Reconciliation Form Allergies Coded Allergies: No Known Drug Allergies (Unverified , 07/06/16) Past Jlxasej-Ebxjmv-Iloxev Hx Patient Social History Marrital Status: Employed/Student: retired Alcohol Use: Denies Use Recreational Drug Use: No Smoking Status: Former Smoker Former smoker/When Quit: Jul 12, 1964 Type Used: Cigarettes Physical Abuse Screen: No Sexual Abuse: No Recent Foreign Travel: No Contact w/other who traveled: No Recent Hopitalizations: Yes (gallbladder) Recent Infectious Disease Expo: No Immunizations Up To Date Tetanus Booster (TDap): Unknown Date of Pneumonia Vaccine: May 13, 2015 Date of Influenza Vaccine: Apr 11, 2016 Seasonal Allergies Seasonal Allergies: No Surgeries HX Surgeries: Yes Surgeries: Cardiac, Coronary Stent, Gallbladder ((07/28/16)), Joint Replacement , Orthopedic, Tonsillectomy Respiratory Hx Respiratory Disorders: Yes Respiratory Disorders: Sleep Apnea Cardiovascular Hx Cardiovascular Disorders: Yes Cardiac Disorders: Coronary Artery Disease, High Cholesterol, Hypertension, Peripheral Vascular, Valvular Heart Disease Neurological Hx Neurological Disorders: Yes (SEIZURES PRIOR TO CAROTID SURGERY) Neurological Disorders: Dementia, Seizure Disorder, TIA Reproductive System Hx Reproductive Disorders: No Genitourinary Hx Genitourinary Disorders: Yes ("BLOCKED R KIDNEY") Gastrointestinal Hx Gastrointestinal Disorders: No Musculoskeletal Hx Musculoskeletal Disorders: Yes (ARTHRITIS IN KNEES) Musculoskeletal Disorders: Arthritis Endocrine Hx Endocrine Disorders: No HEENT HX ENT Disorders: No Cancer Hx Cancer: No Psychosocial Hx Psychiatric Problems: Yes Behavioral Health Disorders: Depression Integumentary HX Skin/Integumentary Disorder: No Blood Transfusions Hx Blood Disorders: No Reviewed Nursing Assessment Reviewed/Agree w Nursing PMH: Yes Family Medical History Significant Family History: No Pertinent Family Hx Family Hx: Arthritis 19 MOTHER Cardiovascular disease 19 FATHER Congenital heart disease Hypercholesterolemia 19 MOTHER Hypertension 19 FATHER Myocardial infarction 19 FATHER Osteoporosis 19 MOTHER Review of Systems Constitutional: see HPI dizziness weakness EENTM: no symptoms reported Respiratory: dyspnea on exertion short of breath Cardiovascular: no symptoms reported Gastrointestinal: abdominal pain (RUQ) Genitourinary: no symptoms reported Musculoskeletal: no symptoms reported Skin: no symptoms reported Psychiatric/Neurological: Depressed All Other Systems Reviewed Negative Unless Noted: Yes Physical Exam Physical Exam Vital Signs Vital Sign - Last 12Hours 08/07/16 16:35 Temp 98.0 Pulse 76 Resp 24 B/P 142/84 Pulse Ox 98 O2 Delivery Nasal Cannula O2 Flow Rate 2 FiO2 100 Capillary Refill : Less Than 3 Seconds General Appearance: No Apparent Distress WD/WN Eyes: Bilateral Eye Normal Inspection, Bilateral Eye PERRL HEENT: PERRL/EOMI Normal ENT Inspection Pharynx Normal Neck: Full Range of Motion Normal Inspection Non Tender Supple Carotid Bruit Respiratory: Chest Non Tender No Accessory Muscle Use No Respiratory Distress Crackles Decreased Breath Sounds Cardiovascular: No Edema No Gallop No JVD No Murmur Normal Peripheral Pulses Irregularly Irregular Gastrointestinal: Normal Bowel Sounds No Organomegaly No Pulsatile Mass Non Tender Soft Back: Normal Inspection No CVA Tenderness No Vertebral Tenderness Extremity: Normal Capillary Refill Normal Inspection Normal Range of Motion Non Tender No Calf Tenderness No Pedal Edema Neurologic/Psychiatric: Alert Oriented x3 No Motor/Sensory Deficits Normal Mood/Affect Skin: Normal Color Warm/Dry Lymphatic: No Adenopathy Results Results/Procedures Lab Laboratory Tests 08/07/16 16:00 08/08/16 05:25 Assessment/Plan Admission Diagnosis Assessment: Volume overload w/AF w/elevated BNP responding to diuresis LLL infiltrate c/w facility acquired pneumonia placed on empiric abx Severe valvular heart disease managed by Dr Murdock and Dr Zachary Cox in [place] RANCHO HTN HLP Osteoporosis on Fosamax Seizure d/o Dementia w/anger issues last hospital stay due to meds in observation status not easily redirected Depression Recent cholecystectomy uncomplicated with ERCP revealing duodenal ulcers will begin proton pump inhibitor empirically Elevated liver enzymes Assessment and Plan Restart all home meds Appreciate cardiology evaluation IV diuresis Antibiotic coverage Nebulizers Oxygen Pain control Monitor labs Triple antibiotic therapy and will minimize tomorrow Monitor liver Proton pump inhibitor Copy Copies To 1: RANJIT CHAPMAN MD Clinical Quality Measures DVT/VTE Risk/Contraindication: Risk Factor Score Per Nursin RFS Level Per Nursing on Admit: 4+=Very High ADILIA DALE DO Aug 08, 2016 10:21
[2016-08-08 12:00] VITALS: BP 119/82
--- NOTE | 2016-08-08 12:58 | Physical Therapy Evaluation ---
PT Evaluation-General Medical Diagnosis Admission Date Aug 07, 2016 at 20:01 Onset Date: Aug 07, 2016 Therapy Diagnosis Therapy Diagnosis: limited mobility Height/Weight Height (Feet): 5 Height (Inches): 7.00 Weight (Pounds): 237 Weight (Ounces): 7.0 Precautions Precautions/Isolations: Seizure Weight Bear Status Weight Bearing Restriction: Full Weight Bearing Referral Physician: Yash Reason for Referral: Evaluation/Treatment Medical History Pertinent Medical History: Atrial Fib, CAD, COPD Current History Dyspnea, pneumonia, and possible CVA. Reviewed History: Yes Social History Home: Single Level Entry Into Home: Stairs With Railing PT Steps Into Home: 1 PT Steps Inside Home: 0 Pt reports (I) with stairs and uses the cane in the home and community. Prior/Core FIM Prior Level of Function Functional [place]cleod Measure 0=Not Assessed/NA 4=Minimal Assistance 1=Total Assistance 5=Supervision or Setup 2=Maximal Assistance 6=Modified Mcleod 3=Moderate Assistance 7=Complete Mcleod Bed Mobility: 7 Transfers (B,C,W/C) (FIM): 7 Gait: 6 Locomotion: 6 PT Evaluation-Current Subjective (L) LE edema with a 1cm vesicle on the dorsum of the foot. Pt/Family Goals Return home. Objective Patient Orientation: Person, Place, Time, Situation Problem Solving: Good Comprehension: 7 Expression: 7 Social Interaction: 7 Problem Solvin Memory: 7 ROM/Strength ROM Upper Extremities WFL ROM Lower Extremities WFL Strength Upper Extremities WFL Strenght Lower Extremities WFL Neuromuscular (Tone, Coordination, Reflexes) Intact Sensory Vision: Wears Glasses Hearing: Functional Sensation Right Upper Extremit: Intact Sensation Left Upper Extremity: Intact Sensation Right Lower Extremit: Intact Sensation Left Lower Extremity: Intact Transfers Functional Mcleod Measure 0=Not Assessed/NA 4=Minimal Assistance 1=Total Assistance 5=Supervision or Setup 2=Maximal Assistance 6=Modified Mcleod 3=Moderate Assistance 7=Complete Mcleod Transfers (B, C, W/C) (FIM): 6 Scootin Rollin Supine to/from Sit: 6 Sit to/from Stand: 6 Gait Mode of Locomotion: Walk Gait (FIM): 1 Distance (FIM): 1=up to 49 ft Distance: 60ft Gait Level of Assist: 3 Gait Persons Needed: 1 Gait Assistive Device: FWW Comments/Gait Description Pt used the FWW for the evaluation, but uses the cane at home. He may be safer with the cane. Balance Sitting Static: Normal Sitting Dynamic: Normal Standing Static: Normal Standing Dynamic: Normal Assessment/Needs Dyspnea lasting 15 seconds after ambulating 60ft. Rehab Potential: Good PT Short Term Goals Short Term Goals Time Frame: Aug 15, 2016 Transfers (B,C,W/C) (FIM): 7 Gait (FIM): 6 Distance (FIM): 3=150 ft Gait Distance Comment: Ambulate at least 200ft Gait Level of Assist: 6 Gait Assistive Device: Cane Single Point Stairs (FIM): 6 # of Steps: 1 Stairs Level of Assist: 6 PT Plan Problem List Problem List: Activity Tolerance Treatment/Plan Treatment Plan: Continue Plan of Care Treatment Plan: Functional Activity Rin, Gait, Therapeutic Exercise Treatment Duration: Aug 15, 2016 # of days/week 5 Visits Per Week: 5 Pt/Family Agrees w/Plan: Yes Time/GCodes Time In: 1230 Time Out: 1300 Total Billed Treatment Time: 30 Total Billed Treatment 1, BETH Truong PT Aug 08, 2016 12:57
--- NOTE | 2016-08-08 14:15 | Consultation-Cardiology ---
HPI-Cardiology Cardiology Consultation: Date of Consultation 08/08/16 Date of Admission Attending Physician Hua Tobin MD Admitting Physician Dr Berrios Consulting Physician LEONEL CARDENAS MD, FACP, FACC, [facility] [place], CCDS Physician requesting consult: Dr Berrios Primary bottom stop attacher: Dr Murdock HPI: Chief Complaint: Reason for consultation: Shortness of breath, Atrial fibrillation 76 yo man admitted with increasing shortness of breath and gen malaise for several days, much worse yesterday. He himself called EMT. Was found slumped over but conscious. He does not think he lost consciousness or had any seizures. Was diagnosed with pneumonia and CHF and hospitalized to Dr Berrios. Denies cp or palp. Has had significant leg swelling, bilateral, lately. Does not report fever or chills Review of Systems-Cardiology Review of Systems Constitutional: As described under HPI Eyes: No vision change Ears/Nose/Throat: No ear discharge, No nasal drainage, No recent hearing loss Respiratory: As described under HPI Cardiovascular: As described under HPI Gastrointestinal: No diarrhea, No nausea, No vomiting Genitourinary: No dysuria, No hematuria Musculoskeletal: back pain (chronic) Skin: No rash, No ulcerations Psychiatric/Neurological: seizure (remote history of seizures, none lately)No anxiety, No depression, No focal weakness, No syncope Hematologic: No bleeding abnormalities All Other Systems Reviewed Negative Unless Noted: Yes [id number] Hx Patient Social History Marrital Status: Employed/Student: retired Alcohol Use: Denies Use Recreational Drug Use: No Smoking Status: Former Smoker Former smoker/When Quit: Jul 12, 1964 Type Used: Cigarettes Recent Foreign Travel: No Recent Infectious Disease Expo: No Physical Abuse Screen: No Sexual Abuse: No Immunizations Up To Date Tetanus Booster (TDap): Unknown Date of Pneumonia Vaccine: May 13, 2015 Date of Influenza Vaccine: Apr 11, 2016 Past Medical History PMH As described under Assessment. Family Medical History Family History: Arthritis 19 MOTHER Cardiovascular disease 19 FATHER Congenital heart disease Hypercholesterolemia 19 MOTHER Hypertension 19 FATHER Myocardial infarction 19 FATHER Osteoporosis 19 MOTHER Allergies and Home Medications Allergies Coded Allergies: No Known Drug Allergies (Unverified , 07/06/16) Home Medications Aspirin 81 Mg Tablet.dr 81 MG PO DAILY (Reported) Calcium Carbonate/Vitamin D3 1 Each Tablet 600 MG PO DAILY (Reported) Carvedilol 3.125 Mg Tablet #60 3.125 MG PO BID Prescribed by: TONY MURDOCK on 07/23/16 0659 Donepezil Hcl 10 Mg Tablet 10 MG PO HS (Reported) Enalapril Maleate 2.5 Mg Tablet #30 2.5 MG PO DAILY Prescribed by: TONY MURDOCK on 07/23/16 0659 Furosemide 40 Mg Tablet 40 MG PO BID (Reported) Hydrocodone/Acetaminophen 1 Each Tablet #30 1-2 TAB PO 4-6HR PRN PRN PAIN Prescribed by: JACQUELINE MEANS on 07/28/16 1017 Lamotrigine 150 Mg Tablet 150 MG PO BID (Reported) Levetiracetam 500 Mg Tablet 1,500 MG PO BID (Reported) TAKES 3 (500 MG) TABLETS Paroxetine HCl 40 Mg Tablet 40 MG PO DAILY (Reported) Warfarin Sodium 5 Mg Tablet 5 MG PO HS (Reported) Physical Exam-Cardiology Physical Exam Vital Signs/I&O Vital Sign - Last 12Hours 08/08/16 08/08/16 08/08/16 08/08/16 02:17 04:00 07:10 07:13 Temp 96.0 Pulse 80 82 Resp 20 B/P 123/83 Pulse Ox 98 98 92 O2 Delivery Nasal Cannula O2 Flow Rate 2.00 2.00 1.00 08/08/16 08/08/16 08/08/16 08/08/16 08:35 08:40 10:55 11:10 Temp 95.0 Pulse 68 Resp 18 B/P 121/77 Pulse Ox 94 99 97 94 O2 Delivery Nasal Cannula Nasal Cannula O2 Flow Rate 1.00 2.00 1.00 FiO2 100 08/08/16 12:00 Temp 96.2 Pulse 85 Resp 18 B/P 119/82 Pulse Ox 97 O2 Delivery Nasal Cannula O2 Flow Rate 2.00 Intake and Output 08/08/16 00:00 Intake Total 200 ml Balance 200 ml Capillary Refill : Less Than 3 Seconds Constitutional: AAO x 3 well-developed well-nourished HEENT: hearing is well preservedNo xanthelasmas are seen Neck: carotid pulses are 2 + bilaterally with good upstrokes Respiratory: No accessory muscle use, other (diminished air entry and dullness on the L lung base and mid zone) Cardiovascular: irregularly irregular S1 and S2 systolic murmur (soft MATEUSZ at card base) Gastrointestinal: No tender, softNo guarding, No rebound, audible bowel sounds Extremities: No clubbing, No cyanosis, significant edema (bilateral legs) Neurologic/Psychiatric: oriented x 3 grossly intact Skin: No rash on exposed areas, No ulcerations on exposed areas Data Review Labs Laboratory Tests 08/07/16 16:00: Activated Partial Thromboplast Time 36H, Alanine Aminotransferase (ALT/SGPT) 262H, Albumin 3.4, Alkaline Phosphatase 109, Anion Gap 11, Aspartate Amino Transf (AST/SGOT) 113H, B-Type Natriuretic Peptide 1965.6H, BUN/Creatinine Ratio 25, Basophils # (Auto) 0.0, Basophils (%) (Auto) 0, Blood Urea Nitrogen 25H, Calcium Level 8.5, Carbon Dioxide Level 23, Chloride Level 102, Creatinine 1.02, D-Dimer 3.53H, Eosinophils # (Auto) 0.1, Eosinophils (%) (Auto) 2, Estimat Glomerular Filtration Rate > 60, Glucose Level 90, Hematocrit 38L, Hemoglobin 12.6L, INR Comment 2.5H, Lymphocytes # (Auto) 2.1, Lymphocytes (%) ( Auto) 26, Mean Corpuscular Hemoglobin 30, Mean Corpuscular Hemoglobin Concent 33 , Mean Corpuscular Volume 91, Mean Platelet Volume 9.8, Monocytes # (Auto) 0.8, Monocytes (%) (Auto) 10, Neutrophils # (Auto) 5.0, Neutrophils (%) (Auto) 62, Platelet Count 221, Potassium Level 3.6, Prothrombin Time 27.0H, Red Blood Count 4.22L, Red Cell Distribution Width 16.0H, Sodium Level 136, Total Bilirubin 0.9, Total Protein 5.9L, Troponin I < 0.30, White Blood Count 8.1 08/07/16 19:10: Urine Bacteria NEGATIVE, Urine Bilirubin NEGATIVE, Urine Casts PRESENT, Urine Clarity CLEAR, Urine Color YELLOW, Urine Crystals NONE, Urine Culture Indicated NO, Urine Glucose (UA) NEGATIVE, Urine Hyaline Casts 5-10H, Urine Ketones NEGATIVE, Urine Leukocyte Esterase NEGATIVE, Urine Mucus NEGATIVE, Urine Nitrite NEGATIVE, Urine Protein 1+H, Urine RBC NONE, Urine RBC (Auto) NEGATIVE, Urine Specific [place] 1.020, Urine Urobilinogen 1, Urine WBC 0-2, Urine pH 6 08/08/16 05:25: Activated Partial Thromboplast Time 36H, Alanine Aminotransferase (ALT/SGPT) 219H, Albumin 3.2, Alkaline Phosphatase 109, Anion Gap 10, Aspartate Amino Transf (AST/SGOT) 87H, BUN/Creatinine Ratio 20, Basophils # (Auto) 0.0, Basophils (%) (Auto) 0, Blood Urea Nitrogen 21H, Calcium Level 8.1L, Carbon Dioxide Level 27, Chloride Level 99, Creatinine 1.06, Eosinophils # (Auto) 0.1, Eosinophils (%) (Auto) 2, Estimat Glomerular Filtration Rate > 60, Glucose Level 98, Hematocrit 39L, Hemoglobin 12.4L, INR Comment 2.2H, Lymphocytes # ( Auto) 2.4, Lymphocytes (%) (Auto) 27, Mean Corpuscular Hemoglobin 29, Mean Corpuscular Hemoglobin Concent 32, Mean Corpuscular Volume 92, Mean Platelet Volume 9.6, Monocytes # (Auto) 0.8, Monocytes (%) (Auto) 9, Neutrophils # (Auto ) 5.5, Neutrophils (%) (Auto) 62, Platelet Count 226, Potassium Level 3.5L, Prothrombin Time 24.3H, Red Blood Count 4.22L, Red Cell Distribution Width 15.9H , Sodium Level 136, Total Bilirubin 1.0, Total Protein 5.6L, White Blood Count 8.9 Laboratory Tests 08/07/16 16:00 08/08/16 05:25 A/P-Cardiology Assessment/Admission Diagnosis Dyspnea, multifactorial (see below) Pneumonia, ?aspiration Acute on chronic decompensated systolic CHF due to ischemic cardiomyopathy ( LVEF 35% and mod MR and mod TR on DARELL of 07/22/[address] Murdock) Obstructive sleep apnea treated with C-PAP PAF, recurrent after DARELL and elec cardioversion of 07/22/[address] Murdock Chronic warfarin anticoag, INR currently therapeutic Hypokalemia during this hospitalization, likely related to diruetic therapy Elevated transaminases during this hospitalization, likely related to passive hepatic congestion Coronary artery disease, history of PTCA and stent January 01, 2005 using Taxus 3.5 x 24 mm to the obtuse marginal, PTCA and stent January 09, 2005 using Taxus 3.5 x 24 mm to the obtuse marginal, PTCA and stent January 15, 2005 using 2.7 x 16 mm to the right coronary artery, most recent cardiac catheterization September 24, 2010 showing the left main with no obstructive disease. The left anterior descending artery has tubular stenosis and narrowing at the proximal ostial portion up to 50-60%. The left circumflex has mild to moderate irregularity, no obstructive disease. The right coronary artery stent is patent with no obstructive disease Peripheral vascular disease status post bypass of the common femoral on the left and left femoral endarterectomy in [place] [address] Cox, right ileofemoral angiogram and runoffs with stent placement October 2010, stenting of the right common iliac artery using an 8 mm x 21 mm Bridge stent. Followed and monitored by [facility]. Echocardiogram was done on February 21, 2016 which showed [id number] left ventricular hypertrophy, ejection fraction is 50 percent, left atrial dilatation , heavily calcified mitral valve with echogenic density noted at the posterior leaflet of the mitral valve probably due to the mitral annular calcification, calcified aortic valve with moderate aortic regurgitation, pulmonary hypertension with pulmonary artery pressure of 55 mmHg Thoracic aortic aneurysm monitored by [facility] Hypertension Hyperlipidemia Left subclavian steal- monitored by [facility] Seizure disorder, no seizure activities were reported since 2009 Carotid stenosis, history of right CEA, monitored by [facility] Erosive gastritis and duodenitis and hiatal hernia on EGD of Jul [address] Colmenares Discussion and Recomendations * Complex management due to multiple comorbidities * I reviewed his previous records, including hospital records and Dr Murdock's office records * I had a detailed discussion with him and his daughter * Continue diuretics * Replenish K * Monitor labs * Treatment of pneumonia is with Dr Berrios Clinical Quality Measures DVT/VTE Risk/Contraindication: Risk Factor Score Per Nursin RFS Level Per Nursing on Admit: 4+=Very High LEONEL CARDENAS MD FACP FAC CCDS Aug 08, 2016 14:15
[2016-08-08] MEDS ORDERED: KCL 20 MEQ TAB (K-DUR) PO NR (14:30)
[2016-08-08] MEDS: CATHETER FLUSH 10 ML SYR IV SCH ×2 (14:35→21:23)
[2016-08-08] MEDS: PANTOPRAZOLE 40 MG (PROTONIX) TAB PO SCH ×2 (14:45→21:20)
[2016-08-08] MEDS: PIPERACILLIN SODIUM/TAZOBACTAM 4.5 GM in NORMAL SALINE (BAXTER MINI) 100 ML IV SCH (14:45)
[2016-08-08 16:30] VITALS: BP 106/73
[2016-08-08 19:36] VITALS: BP 110/60
[2016-08-08] MEDS ORDERED: TROUGH ORDER-PHARMACY XX NR (21:00)
[2016-08-08] MEDS: DONEPEZIL 10 MG (ARICEPT) TAB PO SCH (21:20)
[2016-08-08] MEDS: LEVOFLOXACIN 750 MG/150 ML D5W (PRE-MIX) IV SCH (21:21)
[2016-08-09] VITALS: BP 129/81
[2016-08-09] MEDS: PIPERACILLIN SODIUM/TAZOBACTAM 4.5 GM in NORMAL SALINE (BAXTER MINI) 100 ML IV SCH ×3 (00:43→16:43)
[2016-08-09] MEDS: RT-ALBUTEROL SULF 2.5 MG/3 ML PRE-MIX VIAL INH SCH ×6 (02:01→22:08)
[2016-08-09 04:00] VITALS: BP 121/70
[2016-08-09 05:03] LABS: BASOPHILS % (AUTO) 0 % (0-10); EOSINOPHILS # (AUTO) 0.2 10^3/uL (0.0-0.3); EOSINOPHILS % (AUTO) 3 % (0-10); LYMPHOCYTES # (AUTO) 2.6 X 10^3 (1.0-4.0); LYMPHOCYTES % (AUTO) 30 % (12-44); MEAN CORPUSCULAR HEMOGLOBIN 30 PG (25-34); MEAN CORPUSCULAR HGB CONC 33 G/DL (32-36); MEAN CORPUSCULAR VOLUME 91 FL (80-99); MEAN PLATELET VOLUME 9.8 FL (7.4-10.4); MONOCYTES # (AUTO) 0.9 X 10^3 (0.0-1.0); MONOCYTES % (AUTO) 10 % (0-12); NEUTROPHILS # (AUTO) 4.8 X 10^3 (1.8-7.8); NEUTROPHILS % (AUTO) 57 % (42-75); PLATELET COUNT 240 10^3/uL (130-400); RED BLOOD COUNT 4.12 10^6/uL (4.35-5.85); RED CELL DISTRIBUTION WIDTH 15.9 % (10.0-14.5); WHITE BLOOD COUNT 8.5 10^3/uL (4.3-11.0)
[2016-08-09 05:31] LABS: ALANINE AMINOTRANSFERASE 171 U/L (0-55); ALBUMIN 3.1 G/DL (3.2-4.5); ANION GAP 10 MMOL/L (5-14); ASPARTATE AMINO TRANSFERASE 61 U/L (5-34); BILIRUBIN,TOTAL 1.3 MG/DL (0.1-1.0); BLOOD UREA NITROGEN 21 MG/DL (7-18); BUN/CREATININE RATIO 19; CALCIUM 8.4 MG/DL (8.5-10.1); CARBON DIOXIDE 25 MMOL/L (21-32); CHLORIDE 100 MMOL/L (98-107); CREATININE SERUM 1.13 MG/DL (0.60-1.30); GFR ESTIMATED > 60; GLUCOSE 88 MG/DL (70-105); SODIUM 135 MMOL/L (135-145); TOTAL PROTEIN 5.6 G/DL (6.4-8.2)
[2016-08-09] MEDS ORDERED: PIPERACILLIN SODIUM/TAZOBACTAM 4.5 GM in NORMAL SALINE (BAXTER MINI) 100 ML IV SCH (06:00)
[2016-08-09] MEDS: KCL 20 MEQ TAB (K-DUR) PO SCH (06:19)
[2016-08-09] MEDS: CATHETER FLUSH 10 ML SYR IV SCH ×3 (06:19→20:33)
[2016-08-09] MEDS: PANTOPRAZOLE 40 MG (PROTONIX) TAB PO SCH ×2 (06:19→20:32)
[2016-08-09] MEDS: CALCIUM CARB + VIT D 600 MG (CALCARB + D) TAB PO SCH (07:58)
[2016-08-09] MEDS: ASPIRIN E.C. 81 MG (ECOTRIN) TAB PO SCH (07:58)
[2016-08-09] MEDS: CARVEDILOL 3.125 MG (COREG) TABLET PO SCH ×2 (07:58→20:32)
[2016-08-09] MEDS: FUROSEMIDE 40 MG/4 ML INJ (LASIX) IV SCH ×2 (07:58→20:32)
[2016-08-09] MEDS: ENALAPRIL 2.5 MG (VASOTEC) TAB PO SCH (07:59)
[2016-08-09] MEDS: LEVETIRACETAM 500 MG (KEPPRA) TAB PO SCH ×2 (07:59→20:32)
[2016-08-09] MEDS: PARoxetine 20 MG (PAXIL) TAB PO SCH (07:59)
[2016-08-09 08:17] VITALS: BP 118/70
[2016-08-09] MEDS: VANCOMYCIN 1 GM/NS 250 ML IVPB IV SCH ×2 (09:34)
--- NOTE | 2016-08-09 10:01 | Diagnostic Imaging Report ---
INDICATION: Pneumonia, dyspnea. COMPARISON: 08/08/2016. FINDINGS: The left lower lobed infiltrate and pleural effusion are unchanged with smaller right pleural effusion unchanged. Mild cardiomegaly, unchanged. Old rib deformities, chronic. IMPRESSION: Bilateral effusions, greater left and left lower lobed infiltrate, all unchanged. Dictated by: Dictated on workstation # [id number]
--- NOTE | 2016-08-09 10:49 | Progress Note-Hospitalist ---
Progress Note HPI/CC on Admission CC: Drooping face with dyspnea HPI: This is a 76-year-old white male with cognitive deficit, atrial fibrillation, severe valvular disease and recent gallbladder disease the presents to the emergency room after EMS was called due to report of shortness of breath. Upon arrival EMS repositioned his downward position head with good resolution of obstruction but upon further evaluation once he arrived in the ER he was found to have a possible drooping face on the left side so stroke workup ensued. Chest x-ray revealed possible early infiltrate along with volume overload with elevated BNP so broad-spectrum antibiotics were initiated along with cardiology consultation for IV diuresis and he was admitted to room 431 without event. It is to note he underwent ERCP by Dr. Colmenares on 07/27/16 that revealed stones so he underwent an uncomplicated cholecystectomy by Dr. Johnston on 07/28/16 and was monitored closely but was not placed on any new medication because the family did not want another doctor to prescribe any new medicine without his primary care provider prescribing such. Considering that information we will initiate proton pump inhibitor to empirically treat ulcers. Progress Notes/Assess & Plan Date Seen 08/09/16 Admission Dx/Process Assessment: Volume overload w/AF w/elevated BNP responding to diuresis LLL infiltrate c/w facility acquired pneumonia placed on empiric abx Severe valvular heart disease managed by Dr Murdock and Dr Zachary Cox in [place] [facility] HTN HLP Osteoporosis on Fosamax Seizure d/o Dementia w/anger issues last hospital stay due to meds in observation status not easily redirected Depression Recent cholecystectomy uncomplicated with ERCP revealing duodenal ulcers will begin proton pump inhibitor empirically Elevated liver enzymes Diagonsis/Assessment & Plan Patient feeling much better and less short of breath Lower extremity edema is much improved on Lasix IV Appreciate cardiology input Once to go home to play cards by tomorrow afternoon Daughter was concerned about him going home so will evaluate with manager social work tomorrow morning Will minimize antibiotics since he is overall doing well and chest x-ray is improved +BM No fever, vital signs stable, pleasant, up in chair Irregular irregular rhythm, clear to auscultation bilaterally but distant breath sounds in the bases 12 plus edema improved with venous stasis changes noted Laboratory Tests 08/09/16 04:40 Assessment: Volume overload w/AF w/elevated BNP responding to diuresis LLL infiltrate c/w facility acquired pneumonia placed on empiric abx and minimizing today Severe valvular heart disease managed by Dr Murdock and Dr Zachary Cox in [place] [facility] HTN HLP Osteoporosis on Fosamax Seizure d/o Dementia w/anger issues last hospital stay due to meds in observation status not easily redirected Depression Recent cholecystectomy uncomplicated with ERCP revealing duodenal ulcers will begin proton pump inhibitor empirically Elevated liver enzymes much improved Plan: Restarted all home meds and will restart lower dose Coumadin today due to Levaquin on board that I just DC'ed today increasing INR reliably so will check INR in am for toxicity Appreciate cardiology evaluation IV diuresis to continue Antibiotic coverage but minimize since no reason to believe this is resistant type now Nebulizers Oxygen Pain control Monitor labs Monitor liver Proton pump inhibitor Check CXR in am SW consultation since he lives alone and I doubt that is maintainable ADILIA DALE DO Aug 09, 2016 10:49
[2016-08-09 12:00] VITALS: BP 119/61
--- NOTE | 2016-08-09 15:01 | Progress Note-Cardiology ---
Cardiology SOAP Progress Note Subjective: Shortness of breath somewhat better Legs still swollen No cp or palp or syncope Objective: I&O/Vital Signs Vital Sign - Last 12Hours 08/09/16 08/09/16 08/09/16 08/09/16 04:00 07:00 07:16 08:00 Temp 96.5 Pulse 96 87 Resp 22 B/P 121/70 Pulse Ox 96 94 O2 Delivery Room Air Nasal Cannula 08/09/16 08/09/16 08/09/16 08/09/16 08:17 10:31 12:00 13:00 Temp 95.0 95.0 Pulse 87 84 81 Resp 18 20 B/P 118/70 119/61 Pulse Ox 100 96 96 O2 Delivery Room Air Room Air 08/09/16 14:26 Pulse Ox 95 Intake and Output 08/09/16 00:00 Intake Total 2120 ml Balance 2120 ml Weight (Pounds): 237 Weight (Ounces): 7.0 Weight (Calculated Kilograms): 107.370092 Constitutional: AAO x 3 well-developed well-nourished Respiratory: No accessory muscle use, other (diminished air entry and dullness on the L lung base and mid zone) Cardiovascular: irregularly irregular S1 and S2 systolic murmur (soft MATEUSZ at card base) Gastrointestional: No tender, softNo guarding, No rebound, audible bowel sounds Extremities: No clubbing, No cyanosis, significant edema (bilateral legs) Neurologic/Psychiatric: oriented x 3 grossly intact Skin: No rash on exposed areas, No ulcerations on exposed areas Results/Procedures: Labs Laboratory Tests 08/08/16 20:55: Vancomycin Level Trough 15.8 08/09/16 04:40: Alanine Aminotransferase (ALT/SGPT) 171H, Albumin 3.1L, Alkaline Phosphatase 105 , Anion Gap 10, Aspartate Amino Transf (AST/SGOT) 61H, BUN/Creatinine Ratio 19, Basophils # (Auto) 0.0, Basophils (%) (Auto) 0, Blood Urea Nitrogen 21H, Calcium Level 8.4L, Carbon Dioxide Level 25, Chloride Level 100, Creatinine 1.13 , Eosinophils # (Auto) 0.2, Eosinophils (%) (Auto) 3, Estimat Glomerular Filtration Rate > 60, Glucose Level 88, Hematocrit 37L, Hemoglobin 12.2L, Lymphocytes # (Auto) 2.6, Lymphocytes (%) (Auto) 30, Mean Corpuscular Hemoglobin 30, Mean Corpuscular Hemoglobin Concent 33, Mean Corpuscular Volume 91, Mean Platelet Volume 9.8, Monocytes # (Auto) 0.9, Monocytes (%) (Auto) 10, Neutrophils # (Auto) 4.8, Neutrophils (%) (Auto) 57, Platelet Count 240, Potassium Level 4.0, Red Blood Count 4.12L, Red Cell Distribution Width 15.9H, Sodium Level 135, Total Bilirubin 1.3H, Total Protein 5.6L, White Blood Count 8.5 Microbiology 08/07/16 Blood Culture - Preliminary, Resulted No growth Laboratory Tests 08/07/16 16:00 08/08/16 05:25 08/09/16 04:40 A/P: Assessment: Dyspnea, multifactorial (see below) Pneumonia, ?aspiration Acute on chronic decompensated systolic CHF due to ischemic cardiomyopathy ( LVEF 35% and mod MR and mod TR on DARELL of 07/22/[address] Murdock) Obstructive sleep apnea treated with C-PAP PAF, recurrent after DARELL and elec cardioversion of 07/22/[address] Murdock Chronic warfarin anticoag, INR currently therapeutic Hypokalemia during this hospitalization, likely related to diruetic therapy Elevated transaminases during this hospitalization, likely related to passive hepatic congestion Coronary artery disease, history of PTCA and stent January 01, 2005 using Taxus 3.5 x 24 mm to the obtuse marginal, PTCA and stent January 09, 2005 using Taxus 3.5 x 24 mm to the obtuse marginal, PTCA and stent January 15, 2005 using 2.7 x 16 mm to the right coronary artery, most recent cardiac catheterization September 24, 2010 showing the left main with no obstructive disease. The left anterior descending artery has tubular stenosis and narrowing at the proximal ostial portion up to 50-60%. The left circumflex has mild to moderate irregularity, no obstructive disease. The right coronary artery stent is patent with no obstructive disease Peripheral vascular disease status post bypass of the common femoral on the left and left femoral endarterectomy in [place] [address] Cox, right ileofemoral angiogram and runoffs with stent placement October 2010, stenting of the right common iliac artery using an 8 mm x 21 mm Bridge stent. Followed and monitored by [facility]. Echocardiogram was done on February 21, 2016 which showed [id number] left ventricular hypertrophy, ejection fraction is 50 percent, left atrial dilatation , heavily calcified mitral valve with echogenic density noted at the posterior leaflet of the mitral valve probably due to the mitral annular calcification, calcified aortic valve with moderate aortic regurgitation, pulmonary hypertension with pulmonary artery pressure of 55 mmHg Thoracic aortic aneurysm monitored by [facility] Hypertension Hyperlipidemia Left subclavian steal- monitored by [facility] Seizure disorder, no seizure activities were reported since 2009 Carotid stenosis, history of right CEA, monitored by [facility] Erosive gastritis and duodenitis and hiatal hernia on EGD of Jul [address] Colmenares Plan: * Continue diuretics * Monitor labs * Treatment of pneumonia is with LEONEL Darden MD FACP FAC CCDS Aug 09, 2016 15:01
[2016-08-09 16:00] VITALS: BP 132/68
[2016-08-09] MEDS ORDERED: warFARin 3 MG (COUMADIN) TAB PO SCH (18:00)
[2016-08-09 20:00] VITALS: BP_SYST 130; BP_SYST 91; BP_DIAS 62; BP_DIAS 77
[2016-08-09] MEDS: DONEPEZIL 10 MG (ARICEPT) TAB PO SCH (20:32)
[2016-08-10] VITALS: BP 141/56
[2016-08-10] MEDS: PIPERACILLIN SODIUM/TAZOBACTAM 4.5 GM in NORMAL SALINE (BAXTER MINI) 100 ML IV SCH ×2 (00:40→08:30)
[2016-08-10] MEDS: RT-ALBUTEROL SULF 2.5 MG/3 ML PRE-MIX VIAL INH SCH ×4 (02:59→15:10)
[2016-08-10 05:39] LABS: BASOPHILS % (AUTO) 0 % (0-10); EOSINOPHILS # (AUTO) 0.2 10^3/uL (0.0-0.3); EOSINOPHILS % (AUTO) 3 % (0-10); LYMPHOCYTES # (AUTO) 2.6 X 10^3 (1.0-4.0); LYMPHOCYTES % (AUTO) 32 % (12-44); MEAN CORPUSCULAR HEMOGLOBIN 29 PG (25-34); MEAN CORPUSCULAR HGB CONC 32 G/DL (32-36); MEAN CORPUSCULAR VOLUME 90 FL (80-99); MEAN PLATELET VOLUME 9.9 FL (7.4-10.4); MONOCYTES # (AUTO) 0.8 X 10^3 (0.0-1.0); MONOCYTES % (AUTO) 10 % (0-12); NEUTROPHILS # (AUTO) 4.4 X 10^3 (1.8-7.8); NEUTROPHILS % (AUTO) 55 % (42-75); PLATELET COUNT 236 10^3/uL (130-400); RED BLOOD COUNT 4.15 10^6/uL (4.35-5.85); RED CELL DISTRIBUTION WIDTH 15.9 % (10.0-14.5)
[2016-08-10 05:54] LABS: INR 1.6 (0.8-1.4); PROTHROMBIN TIME PATIENT 18.5 SEC (12.2-14.7)
[2016-08-10] MEDS: PANTOPRAZOLE 40 MG (PROTONIX) TAB PO SCH (06:03)
[2016-08-10] MEDS: CATHETER FLUSH 10 ML SYR IV SCH ×2 (06:03→08:31)
[2016-08-10] MEDS: KCL 20 MEQ TAB (K-DUR) PO SCH (06:03)
[2016-08-10 06:06] LABS: ALANINE AMINOTRANSFERASE 138 U/L (0-55); ALBUMIN 3.2 G/DL (3.2-4.5); ANION GAP 11 MMOL/L (5-14); ASPARTATE AMINO TRANSFERASE 47 U/L (5-34); BILIRUBIN,TOTAL 1.4 MG/DL (0.1-1.0); BLOOD UREA NITROGEN 19 MG/DL (7-18); BUN/CREATININE RATIO 17; CALCIUM 8.5 MG/DL (8.5-10.1); CARBON DIOXIDE 25 MMOL/L (21-32); CHLORIDE 99 MMOL/L (98-107); CREATININE SERUM 1.11 MG/DL (0.60-1.30); GFR ESTIMATED > 60; GLUCOSE 87 MG/DL (70-105); POTASSIUM 3.6 MMOL/L (3.6-5.0); SODIUM 135 MMOL/L (135-145); TOTAL PROTEIN 5.6 G/DL (6.4-8.2)
--- NOTE | 2016-08-10 08:06 | Diagnostic Imaging Report ---
INDICATION: Dyspnea, followup pneumonia. DISCUSSION: Two views of the chest were obtained, comparison 08/09/2016. No significant interval change. [id number] left and trace right pleural effusions are stable. Patchy opacities within the left lung base, atelectasis and/or pneumonia, stable. Old bilateral rib fractures are again noted. Cardiomegaly is stable. No lee ann pulmonary edema identified. No pneumothorax. IMPRESSION: 1. Stable chest including cardiomegaly, left lung base opacities, and bilateral pleural effusions. Dictated by: Dictated on workstation # [id number]
[2016-08-10] MEDS: ENALAPRIL 2.5 MG (VASOTEC) TAB PO SCH (08:30)
[2016-08-10] MEDS: CARVEDILOL 3.125 MG (COREG) TABLET PO SCH (08:30)
[2016-08-10] MEDS: CALCIUM CARB + VIT D 600 MG (CALCARB + D) TAB PO SCH (08:30)
[2016-08-10] MEDS: ASPIRIN E.C. 81 MG (ECOTRIN) TAB PO SCH (08:30)
[2016-08-10] MEDS: PARoxetine 20 MG (PAXIL) TAB PO SCH (08:31)
[2016-08-10] MEDS: LEVETIRACETAM 500 MG (KEPPRA) TAB PO SCH (08:31)
[2016-08-10] MEDS: FUROSEMIDE 40 MG/4 ML INJ (LASIX) IV SCH (08:31)
--- NOTE | 2016-08-10 08:53 | Cardiology Progress Note ---
Subjective Subjective/Events-last exam Patient is in bed. No new complaints. States dyspnea has improved. Complaining of generalized fatigue and weakness. Review of Systems General: No Chills, No Night Sweats, No Fatigue, No Malaise, No Appetite, No Other HEENT: No Head Aches, No Visual Changes, No Eye Pain, No Ear Pain, No Dysphasia , No Sinus Congestion, No Post Nasal Drip, No Sore Throat, No Other Pulmonary: No Dyspnea, No Cough, No Pleuritic Chest Pain, No Other Cardiovascular: No: Chest Pain, Edema, Lt Headedness, Orthopnea, Other, Palpitations, Paroxysmal Noc. Dyspnea Gastrointestinal: No: Abdominal Pain, Constipation, Diarrhea, Hematochezia, Melena, Nausea, Other, Vomiting Genitourinary: No Dysuria, No Frequency, No Incontinence, No Hematuria, No Retention, No Other Musculoskeletal: No: arm pain, back pain, foot pain, hand pain, leg pain, neck pain, other, shoulder pain Neurological: : WeaknessNo: Change in speech, Confusion Objective-Cardiology Exam Last Set of Vital Signs Vital Signs 08/08/16 08/10/16 08/10/16 08/10/16 08/10/16 08:35 00:00 04:00 06:40 07:00 Temp 97.0 Pulse 106 Resp 20 B/P 141/56 Pulse Ox 98 O2 Delivery Nasal Cannula O2 Flow Rate 2.00 2.00 FiO2 100 Capillary Refill : Less Than 3 Seconds I&O Intake and Output 08/10/16 00:00 Intake Total 2860 ml Balance 2860 ml Intake Oral 2410 ml IV Total 450 ml # Voids 12 # Bowel Movements 4 General: Alert, Oriented X3, Cooperative HEENT: Atraumatic, PERRLA Neck: Supple, No JVD, No Thyromegaly Lungs: Other (diminished breath sounds.) Heart: Normal S1, Normal S2, Other (irregularly irregular) Abdomen: Normal Bowel Sounds, Soft, No Hepatosplenomegaly Extremities: No Clubbing, No Cyanosis Skin: No Rashes, No Breakdown Neuro: Normal Speech, Cranial Nerves 3-12 NL Psych/Mental Status: Mental Status NL, Mood NL Results Lab Laboratory Tests 08/10/16 05:00 A/P-Cardiology Admission Diagnosis Pneumonia CHF Atrial fibrillation CAD Assessment/Plan Dyspnea, multifactorial- improving. Pneumonia, questionable aspiration- continue antibiotics. Management by medical services Acute on chronic decompensated systolic CHF due to ischemic cardiomyopathy with LVEF 35% and mod MR and mod TR on DARELL of 07/22/16. Continue to diurese. Will change Lasix to PO Obstructive sleep apnea treated with C-PAP Permanent atrial fibrillation, recurrent after DARELL and elec cardioversion of 05/[address] Murdock. Maintained on coumadin. Continue to monitor PT/INR Hypokalemia, replaced. Continue to monitor. Elevated transaminases during this hospitalization, likely related to passive hepatic congestion Coronary artery disease, history of PTCA and stent January 01, 2005 using Taxus 3.5 x 24 mm to the obtuse marginal, PTCA and stent January 09, 2005 using Taxus 3.5 x 24 mm to the obtuse marginal, PTCA and stent January 15, 2005 using 2.7 x 16 mm to the right coronary artery, most recent cardiac catheterization September 24, 2010 showing the left main with no obstructive disease. The left anterior descending artery has tubular stenosis and narrowing at the proximal ostial portion up to 50-60%. The left circumflex has mild to moderate irregularity, no obstructive disease. The right coronary artery stent is patent with no obstructive disease Peripheral vascular disease status post bypass of the common femoral on the left and left femoral endarterectomy in [place] [address] Cox, right ileofemoral angiogram and runoffs with stent placement October 2010, stenting of the right common iliac artery using an 8 mm x 21 mm Bridge stent. Followed and monitored by [facility]. Echocardiogram was done on February 21, 2016 which showed [id number] left ventricular hypertrophy, ejection fraction is 50 percent, left atrial dilatation , heavily calcified mitral valve with echogenic density noted at the posterior leaflet of the mitral valve probably due to the mitral annular calcification, calcified aortic valve with moderate aortic regurgitation, pulmonary hypertension with pulmonary artery pressure of 55 mmHg Thoracic aortic aneurysm monitored by [facility] Hypertension Hyperlipidemia Left subclavian steal- monitored by [facility] Seizure disorder, no seizure activities were reported since 2009 Carotid stenosis, history of right CEA, monitored by [facility] Erosive gastritis and duodenitis and hiatal hernia on EGD of Jul [address] Colmenares S/P cholecystectomy by Dr. Johnston Jul 2016. Recovering well Generalized debility/weakness- Continue PT/OT. Clinical Quality Measures DVT/VTE Risk/Contraindication: Risk Factor Score Per Nursin RFS Level Per Nursing on Admit: 4+=Very High NILO KHAN Aug 10, 2016 08:53
[2016-08-10] MEDS ORDERED: FUROSEMIDE 40 MG (LASIX) TAB PO SCH (09:00)
[2016-08-10] MEDS ORDERED: TROUGH ORDER-PHARMACY XX NR (09:00)
[2016-08-10] MEDS ORDERED: CARV3.122 PO (09:49)
[2016-08-10] MEDS ORDERED: ENAL2.5T PO (09:49)
[2016-08-10] MEDS ORDERED: METO-270 PO (09:49)
[2016-08-10] MEDS ORDERED: DONE10TA41 PO (09:52)
[2016-08-10] MEDS ORDERED: PANT40TA3 PO (09:52)
[2016-08-10] MEDS ORDERED: HYDR-3812 PO (09:52)
[2016-08-10] MEDS ORDERED: FURO40TA4 PO (09:52)
[2016-08-10] MEDS ORDERED: CEFD300C3 PO (09:52)
--- NOTE | 2016-08-10 09:54 | Discharge Inst-Skilled Nursing ---
Discharge Inst-Skilled NF Patient Instructions Patient Problems: CHF Pneumonia Cognitive decline Edema Patient Instructions: Wear loosely bound wide trevor wraps to lower legs to help with edema Consult/Follow Up/Orders Skilled NF Admit to: Certification (SNF) I certify that SNF services are required to be given on an inpatient basis because of the above named patient's need for long-term care on a continuing basis for the conditions(s) for which he/she was receiving inpatient hospital services prior to his/her transfer to the SNF. [facility] Facility Order: Nursing Services, Fur Grader-Evaluate & Treat, Physical Therapy-Evaluate & Treat, Speech Language-Evaluate & Treat Discharge Diet: Low Sodium Diet, Cardiac Diet Daily Activity as Tolerated: Yes New & Resume Previous Orders Diana Berrios Aug 10, 2016 09:53 DIANA BERRIOS DO Aug 10, 2016 09:54
--- NOTE | 2016-08-10 10:27 | Cardiology Progress Note ---
Subjective Subjective/Events-last exam patient is feeling better, event since admission were reviewed, he was admitted with increasing shortness of breath, treated for pneumonia, has bilateral pleural effusion, still having pedal edema and generalized weakness. Denied any chest pain. Still in atrial fibrillation Review of Systems General: No Chills, No Night Sweats, Fatigue MalaiseNo Appetite, No Other HEENT: No Head Aches, No Visual Changes, No Eye Pain, No Ear Pain, No Dysphasia , No Sinus Congestion, No Post Nasal Drip, No Sore Throat, No Other Pulmonary: DyspneaNo Cough, No Pleuritic Chest Pain, No Other Cardiovascular: : EdemaNo: Chest Pain, Lt Headedness, Orthopnea, Other, Palpitations, Paroxysmal Noc. Dyspnea Objective-Cardiology Exam Last Set of Vital Signs Vital Signs 08/08/16 08/10/16 08/10/16 08/10/16 08/10/16 08:35 00:00 04:00 07:00 10:13 Temp 97.0 Pulse 106 Resp 20 B/P 141/56 Pulse Ox 95 O2 Delivery Nasal Cannula O2 Flow Rate 2.00 2.00 FiO2 100 Capillary Refill : Less Than 3 Seconds I&O Intake and Output 08/10/16 00:00 Intake Total 2860 ml Balance 2860 ml Intake Oral 2410 ml IV Total 450 ml # Voids 12 # Bowel Movements 4 General: Alert, Oriented X3, Cooperative HEENT: Atraumatic, PERRLA Neck: Supple, No JVD, No Thyromegaly Lungs: Other (diminished breath sounds.) Heart: Normal S1, Normal S2, Other (irregularly irregular) Abdomen: Normal Bowel Sounds, Soft, No Hepatosplenomegaly Extremities: No Clubbing, No Cyanosis, Other (+2-3 pedal edema) Skin: No Rashes, No Breakdown Neuro: Normal Speech, Cranial Nerves 3-12 NL Psych/Mental Status: Mental Status NL, Mood NL Results Lab Laboratory Tests 08/10/16 05:00 A/P-Cardiology Admission Diagnosis Pneumonia CHF Atrial fibrillation CAD Assessment/Plan Dyspnea, multifactorial, reporting improvement, still on diuretics and antibiotics. Generalized weakness and debility. Receiving physical therapy. Pneumonia, questionable aspiration- continue antibiotics. Management by medical services Acute on chronic decompensated systolic CHF due to ischemic cardiomyopathy with LVEF 35% and mod MR and mod TR on DARELL of 07/22/16. Continue to diurese. Will change Lasix to PO Obstructive sleep apnea treated with C-PAP Permanent atrial fibrillation, recurrent after DARELL and elec cardioversion of 05/28. Maintained on coumadin. Continue to monitor PT/INR Hypokalemia, replaced. Continue to monitor. Elevated transaminases, status post cholecystectomy, ERCP, trending down with his enzymes. Followed and managed by primary care physician. Coronary artery disease, history of PTCA and stent January 01, 2005 using Taxus 3.5 x 24 mm to the obtuse marginal, PTCA and stent January 09, 2005 using Taxus 3.5 x 24 mm to the obtuse marginal, PTCA and stent January 15, 2005 using 2.7 x 16 mm to the right coronary artery, most recent cardiac catheterization September 24, 2010 showing the left main with no obstructive disease. The left anterior descending artery has tubular stenosis and narrowing at the proximal ostial portion up to 50-60%. The left circumflex has mild to moderate irregularity, no obstructive disease. The right coronary artery stent is patent with no obstructive disease Peripheral vascular disease status post bypass of the common femoral on the left and left femoral endarterectomy in [place] [address] Cox, right ileofemoral angiogram and runoffs with stent placement October 2010, stenting of the right common iliac artery using an 8 mm x 21 mm Bridge stent. Followed and monitored by [facility]. Echocardiogram was done on February 21, 2016 which showed [id number] left ventricular hypertrophy, ejection fraction is 50 percent, left atrial dilatation , heavily calcified mitral valve with echogenic density noted at the posterior leaflet of the mitral valve probably due to the mitral annular calcification, calcified aortic valve with moderate aortic regurgitation, pulmonary hypertension with pulmonary artery pressure of 55 mmHg Thoracic aortic aneurysm monitored by [facility] Hypertension, monitor blood pressure on current medications Hyperlipidemia, keep statin on hold at this time due to elevated liver enzymes Left subclavian steal- monitored by [facility] Seizure disorder, no seizure activities were reported since 2009 Carotid stenosis, history of right CEA, monitored by [facility] Erosive gastritis and duodenitis and hiatal hernia on EGD of Jul [address] Colmenares S/P cholecystectomy by Dr. oJhnston Jul 2016. Recovering well Generalized debility/weakness- Continue PT/OT. Clinical Quality Measures DVT/VTE Risk/Contraindication: Risk Factor Score Per Nursin RFS Level Per Nursing on Admit: 4+=Very High TONY MOISE MD Aug 10, 2016 10:27
[2016-08-10] MEDS ORDERED: POTA10TA6 PO (10:31)
--- NOTE | 2016-08-10 10:59 | Physical Therapy Daily Note ---
PT Daily Note-Current Subjective Patient is in recliner and agrees to PT. Family present. Pain Numeric Pain Scale: 0-No Pain Location: No Pain Reported Appearance Noted 3+ edema bilateral LE Mental Status Patient Orientation: Normal For Age Attachments: IV Transfers Functional [place] Measure 0=Not Assessed/NA 4=Minimal Assistance 1=Total Assistance 5=Supervision or Setup 2=Maximal Assistance 6=Modified [place] 3=Moderate Assistance 7=Complete IndependenceIRFPAI Quality Coding Scale 6 Independent with activity with or without an assistive device 5 Patient requires set up or clean up by helper. Patient completes activity by themselves 4 Supervision or touching assist (CGA). [place] provide cues , steadying assist 3 The helper provides less than half the effort to complete the activity 2 The helper provides more than half the effort to complete the activity 1 Dependent. The helper does all the effort to complete an activity 7 Patient refused to complete or attempt activity 9 The patient did not perform the activity before the current illness or injury 88 Not attempted due to Medical conditions or safety concerns Transfers (B, C, W/C) (FIM): 5 Scootin Sit to/from Stand: 5 SBA for safety Gait Training Gait (FIM): 2 Distance (FIM): 1=558-05 ft Distance: 75' Gait Level of Assist: 5 Gait Persons Needed: 1 Gait Assistive Device: FWW flexed hip posture in FWW; patient ceases treatment stating,"I don't want to wear myself out." Exercises Seated Therapy Exercises: Ankle pumps, Long arc quads Seated Reps: 10 (x 2 sets) Assessment Patient fatigues with minimal activity and ceases treatment. PT educated patient on importance of increasing activity to improve current LOF and to safely return to home, however, patient declined to participate with PT. PT Short Term Goals Short Term Goals Time Frame: Aug 15, 2016 Transfers (B,C,W/C) (FIM): 7 Gait (FIM): 6 Distance (FIM): 3=150 ft Gait Distance Comment: Ambulate at least 200ft Gait Level of Assist: 6 Gait Assistive Device: Cane Single Point Stairs (FIM): 6 # of Steps: 1 Stairs Level of Assist: 6 PT Plan Treatment/Plan Treatment Plan: Continue Plan of Care Treatment Plan: Functional Activity Rin, Gait, Therapeutic Exercise Treatment Duration: Aug 15, 2016 Visits Per Week: 5 Safety Risks/Education Patient Education: Disease Process, Safety Issues Teaching Recipient: Patient Teaching Methods: Discussion Response to Teaching: Verbalize Understanding Discharge Recommendations Therapy D/C Recommendations: Physical Therapy Home Care, [facility] (TCU/ NH) Time/GCodes Time In: 1025 Time Out: 1035 Total Billed Treatment Time: 10 Total Billed Treatment 1 visit FA 10 min NATI SHAW PT Aug 10, 2016 10:59
[2016-08-10 12:00] VITALS: BP 112/74
--- NOTE | 2016-08-10 13:30 | Occ Therapy Progress Note ---
Therapy Progress Note Order received for OT eval and treat. Chart review completed. Pt eating lunch. Spoke with RN who reports pt will be discharging to [facility] this afternoon for continued care and therapy. FRANCISCO DHILLON OT Aug 10, 2016 13:30
[2016-08-10] MEDS ORDERED: warFARin 5 MG (COUMADIN) TAB PO SCH (18:00)
[2016-08-10] MEDS ORDERED: CEFDINIR 300 MG (OMNICEF) CAP PO SCH (21:00)
== END 2016-08-10 15:28 | DRG 193 ==
LOC: EDUNIT# 16:35 → ER 16:36 → 4TH 20:01
PROVIDERS: ADMIT Internal Medicine; ATTEND Internal Medicine
DX: J18.9 Pneumonia, unspecified organism (principal); I11.0 Hypertensive heart disease with heart failure; I50.23 Acute on chronic systolic (congestive) heart failure; G45.8 Other transient cerebral ischemic attacks and related syndromes; F03.91 Unspecified dementia, unspecified severity, with behavioral disturbance; I25.5 Ischemic cardiomyopathy; I08.3 Combined rheumatic disorders of mitral, aortic and tricuspid valves; I48.0 Paroxysmal atrial fibrillation; R29.810 Facial weakness; G47.33 Obstructive sleep apnea (adult) (pediatric); I25.10 Atherosclerotic heart disease of native coronary artery without angina pectoris; I27.2 Other secondary pulmonary hypertension; I71.2 Thoracic aortic aneurysm, without rupture; G40.909 Epilepsy, unspecified, not intractable, without status epilepticus; F32.9 Major depressive disorder, single episode, unspecified; K76.1 Chronic passive congestion of liver; Z87.891 Personal history of nicotine dependence; Z95.5 Presence of coronary angioplasty implant and graft; Z79.01 Long term (current) use of anticoagulants; E87.6 Hypokalemia; T50.2X5A Adverse effect of carbonic-anhydrase inhibitors, benzothiadiazides and other diuretics, initial encounter
CPT/HCPCS: 36415; 70450; 71010; 71020; 80053; 80202; 81000; 83880; 84484; 85025; 85379; 85610; 85730; 87040; 93005; 93041; 94640; 94664; 94760; 96374; 96375

== ENCOUNTER 2016-08-27 08:41 | Inpatient (IN) | payer MEDICARE, OTHER ==
[~2016-08-27] VITALS: Ht 170.2 cm; Wt 99.1 kg
[~2016-08-27 08:41] MED LIST changes: +CEFD300C3 PO; +DONE10TA41 PO; +PANT40TA3 PO; +POTA10TA6 PO
[2016-08-27] MEDS ORDERED: PHARMACY TO DOSE IV SCH (09:00)
[2016-08-27 09:50] VITALS: BP 84/48
[2016-08-27] MEDS ORDERED: CEFEPIME INJECTION 2,000 MG in NS (IVPB) 50 ML IV SCH (10:00)
--- NOTE | 2016-08-27 10:03 | History & Physical-Hospitalist ---
HPI History of Present Illness: HPI/Chief Complaint CC: Complete decompensation HPI: This is a 76-year-old white male with past medical history of congestive heart failure and pneumonia with COPD there is had a very rapid decline the last few months but was admitted directly from the nursing facility due to decline status and failure on Levaquin for pneumonia. He was directly admitted to room 508 but he appeared to be gravely ill I spoke with his daughters and they want him to be DO NOT RESUSCITATE and provide comfort care measures only which is reasonable considering how gravely ill he is. Patient is not coherent and appears to be in the active dying process. He has hypotension and overall significant decompensation. Source: patient Exam Limitations: no limitations Date Seen 08/27/16 Attending Physician Diana Berrios John D MD Referring Physician Date of Admission Aug 27, 2016 at 09:50 Home Medications & Allergies Home Medications Reviewed patient Home Medication Reconciliation Form Allergies Coded Allergies: No Known Drug Allergies (Unverified , 07/06/16) Past Ctfgbco-Auocsk-Mxkvmv Hx Patient Social History Marrital Status: Employed/Student: retired Former smoker/When Quit: Jul 12, 1964 Type Used: Cigarettes Recent Hopitalizations: Yes (gallbladder) Immunizations Up To Date Tetanus Booster (TDap): Unknown Date of Pneumonia Vaccine: May 13, 2015 Date of Influenza Vaccine: Apr 11, 2016 Seasonal Allergies Seasonal Allergies: No Surgeries HX Surgeries: Yes Surgeries: Cardiac, Coronary Stent, Gallbladder, Joint Replacement, Orthopedic , Tonsillectomy Respiratory Hx Respiratory Disorders: Yes Respiratory Disorders: COPD, Pneumonia, Sleep Apnea Cardiovascular Hx Cardiovascular Disorders: Yes Cardiac Disorders: Coronary Artery Disease, High Cholesterol, Hypertension, Peripheral Vascular, Valvular Heart Disease Neurological Hx Neurological Disorders: Yes (SEIZURES PRIOR TO CAROTID SURGERY) Neurological Disorders: Dementia, Seizure Disorder, TIA Reproductive System Hx Reproductive Disorders: No Genitourinary Hx Genitourinary Disorders: Yes ("BLOCKED R KIDNEY") Gastrointestinal Hx Gastrointestinal Disorders: No Musculoskeletal Hx Musculoskeletal Disorders: Yes (ARTHRITIS IN KNEES) Musculoskeletal Disorders: Arthritis Endocrine Hx Endocrine Disorders: No HEENT HX ENT Disorders: No Cancer Hx Cancer: No Psychosocial Hx Psychiatric Problems: Yes Behavioral Health Disorders: Depression Integumentary HX Skin/Integumentary Disorder: No Blood Transfusions Hx Blood Disorders: No Family Medical History Significant Family History: No Pertinent Family Hx Family Hx: Arthritis 19 MOTHER Cardiovascular disease 19 FATHER Congenital heart disease Hypercholesterolemia 19 MOTHER Hypertension 19 FATHER Myocardial infarction 19 FATHER Osteoporosis 19 MOTHER Review of Systems ROS-Unable to Obtain: Limited due to dying process Constitutional: see HPI EENTM: see HPI Physical Exam Physical Exam Vital Signs Vital Sign - Last 12Hours 08/27/16 09:50 Temp 98.3 Pulse 48 Resp 32 B/P 84/48 Pulse Ox 72 O2 Delivery Nasal Cannula O2 Flow Rate 6.00 Capillary Refill : General Appearance: Chronically ill Moderate Distress Other (acutely ill and dying) Respiratory: Accessory Muscle Use Crackles Decreased Breath Sounds Wheezing Cardiovascular: Irregularly Irregular Tachycardia Neurologic/Psychiatric: Disoriented x3 Skin: Mottled Assessment/Plan Admission Diagnosis Assessment: End-of-life process with complete clinical decompensation Congestive heart failure Recurrent pneumonia Respiratory failure Assessment and Plan Comfort care measures Provide support to the family DIANA BERRIOS DO Aug 27, 2016 10:03
--- OUTSIDE RECORDS SUMMARY | 2016-08-27 10:05 | XMS REPORT | Continuity of Care Document ---
Author Author [facility] Organization [facility] Address Unknown Phone Unavailable Care Team Providers Care Lead Assembler Name Role Phone RANJIT CHAPMAN MD PCP Insurance Providers Payer Name Policy Number Subscriber Name Relationship [employer] [id number] Brayden Gee 20 Self / Same As Patient [employer] [id number] Brayden Gee 20 Self / Same As Patient Advance Directives Directive Response Recorded Date/Time Advance Directives No 08/07/16 8:45pm Health Care Power of Pigment Processor No 08/07/16 8:45pm Organ Donor No 08/07/16 8:45pm Resuscitation Status Full Code 08/07/16 8:45pm Chief Complaint and Reason for Visit Chief Complaint LLL PNEUMONIA, DYSPNEA, PEDAL EDEMA Reason for Visit Encounter for monitoring coumadin therapy Pedal edema Rib fracture Rib fracture Shortness of breath Problems Active Problems Medical Problem Onset Date Status Atrial fibrillation Unknown Acute Constipation Unknown Acute Dyspnea Unknown Acute Elevated liver function tests Unknown Acute Encounter for monitoring coumadin therapy Unknown Acute Fall Unknown Acute Hypokalemia Unknown Acute Left lower lobe pneumonia Unknown Acute Lightheadedness Unknown Acute New onset atrial fibrillation Unknown Acute Pedal edema Unknown Acute Pulmonary edema Unknown Acute Renal insufficiency Unknown Acute Rib fracture Unknown Acute Rib fracture Unknown Acute Shortness of breath Unknown Acute Medications Current Home Medications Medication Dose Units Route Directions Days/Qty Instructions Start Date Calcium Carbonate/Vitamin D3 1 Each 600 Mg Oral Daily 01/06/09 Warfarin Sodium 5 Mg 5 Mg Oral Bedtime 07/22/16 Aspirin 81 Mg 81 Mg Oral Daily 07/22/16 Levetiracetam 500 Mg 1,500 Mg Oral Twice A Day TAKES 3 (500 MG) TABLETS 07/22/16 Lamotrigine 150 Mg 150 Mg Oral Twice A Day 07/22/16 Paroxetine Hcl 40 Mg 40 Mg Oral Daily 07/22/16 Enalapril Maleate 2.5 Mg 2.5 Mg Oral Daily 08/10/16 Carvedilol 3.125 Mg 3.125 Mg Oral Twice A Day 08/10/16 Hydrocodone/Acetaminophen 1 Each 1-2 Tab Oral 4-6HR as needed for Pain 30 08/10/16 Donepezil Hcl 10 Mg 10 Mg Oral Bedtime 30 Days 08/10/16 Furosemide 40 Mg 40 Mg Oral Lasix Bid Schedule 30 Days 08/10/16 Pantoprazole Sodium 40 Mg 40 Mg Oral Bid@07, 30 Days 08/10/16 Cefdinir (Omnicef) 300 Mg 300 Mg Oral Twice A Day 6 08/10/16 Potassium Chloride 10 Meq 10 Meq Oral Twice A Day 60 08/10/16 Past Home Medications Medication Directions Ordered Status [...] Sodium 70 Mg Tablet, 70 Mg Oral Wednesday Mornings 01/06/09 Discontinued Donepezil Hcl 10 Mg Tablet, 10 Mg Oral Bedtime 01/06/09 Discontinued Simvastatin 40 Mg Tablet, 40 Mg Oral Bedtime 01/06/09 Discontinued Aspirin 325 Mg Tablet., 325 Mg Oral Daily 01/06/09 Discontinued Levetiracetam [...] Oral Daily 07/06/16 Discontinued Aspirin 81 Mg Tablet., 81 Mg Oral Daily 07/06/16 Discontinued Linch-3/Dha/Epa/Fish Oil 1 Each Capsule, 1 Each Oral Three Times A Day Discontinued Glucosamine Hcl 500 Mg Tablet, 500 Mg Oral Daily 07/06/16 Discontinued Furosemide 40 Mg Tablet, 40 Mg Oral Twice A Day 07/07/16 Discontinued Potassium Chloride 20 Meq Tablet.er, 20 Meq Oral Daily 07/07/16 Discontinued Simvastatin 40 Mg Tablet, 40 Mg Oral Bedtime 07/22/16 Discontinued Linch-3/Dha/Epa/Fish Oil 1 Each Capsule, 1000 Mg Oral Three Times A Day 07/22 Discontinued Alendronate Sodium 70 Mg Tablet, 70 Mg Oral Every Wednesday07/22/16 Discontinued Glucosamine Sulfate 500 Mg Tablet, 1500 Mg Oral Daily 07/22/16 Discontinued Furosemide 40 Mg Tablet, 20 Mg Oral Twice A Day 07/22/16 Discontinued Carvedilol 3.125 Mg Tablet, 3.125 Mg Oral Twice A Day 07/23/16 Discontinued Enalapril Maleate 2.5 Mg Tablet, 2.5 Mg Oral Daily 07/23/16 Discontinued Hydrocodone/Acetaminophen 1 Each Tablet, 1-2 Tab Oral 4-6HR as needed for Pain 07/28/16 Discontinued Metoprolol Succinate 25 Mg Tab.er.24h, 12.5 Mg Oral Twice A Day 08/10/16 Discontinued Social History Social History Problem Response Recorded Date/Time Alcohol Use Denies Use 01/22/2015 7:23pm Recreational Drug Use No 01/22/2015 7:23pm Recent Foreign Travel No 08/07/2016 8:45pm Recent Infectious Disease Exposure No 08/07/2016 8:45pm Smoking Status Former Smoker 08/07/2016 8:45pm Type Used Cigarettes 08/10/2016 3:29pm Recent Hopitalizations Y gallbladder 08/07/2016 8:45pm Query Response Start Date Stop Date Smoking Status Former Smoker 07/12/1964 Hospital Discharge Instructions Patient Instructions Physician Instructions Patient Problems: CHF Pneumonia Cognitive decline Edema Patient Instructions: Wear loosely bound wide trevor wraps to lower legs to help with edema Certification (SNF) I certify that SNF services are required to be given on an inpatient basis because of the above named patient's need for longterm care on a continuing basis for the conditions(s) for which he/she was receiving inpatient hospital services prior to his/her transfer to the SNF. Fdc Facility Order: Nursing Services, Auto Clutch Specialist-Evaluate & Treat, Physical Therapy-Evaluate & Treat, Speech Language-Evaluate & Treat Discharge Diet: Low Sodium Diet, Cardiac Diet Daily Activity as Tolerated: Yes Adilia Dale Aug 10, 2016 09:53 Care Plan Patient Instructions:: Wear loosely bound wide trevor wraps to lower legs to help with edema Patient Problems: CHFPneumoniaCognitive declineEdema Plan of Care Discharge Date 08/10/16 3:28pm Disposition 03 XFER SNF Instructions/Education Provided CHF Prescriptions See Medication Section Follow-up Orders PT/INR CMP Additional Instructions/Education Follow up with Dr. Murdock 2016 at 2: 50pm Care Plan and Goals See Discharge Instructions Section Functional Status Query Response Date Recorded Patient Orientation Normal For Age August 10, 2016 10:59am Patient Orientation Person Place Time Situation August 10, 2016 3:29pm Comprehension Ability Understands Concepts August 10, 2016 11:28am Allergies, Adverse Reactions, Alerts No known allergies. Immunizations No immunization records. Vital Signs Acute Vital Signs Vital Response Date/Time Temperature (Fahrenheit) 96.5 degrees F (97.6 - 99.5) 08/10/2016 12:00pm Temperature (Calculated Celsius) 35.61758 degrees C (36.4 - 37.5) 08/10/2016 12:00pm Temperature Source Tympanic 08/10/2016 12:00pm Pulse Rate (adult) 103 bpm (60 - 90) 08/10/2016 1:00pm Respiratory Rate 24 bpm (12 - 24) 08/10/2016 12:00pm O2 Sat by Pulse Oximetry 94 % (88 - 100) 08/10/2016 3:10pm Blood Pressure 112/74 mm Hg 08/10/2016 12:00pm Blood Pressure Mean 87 mm Hg 08/10/2016 12:00pm Pain Numeric Pain Scale 0-No Pain 08/10/2016 12:00pm Height (Feet) 5 feet 08/07/2016 8:45pm Height (Inches) 7.00 inches 08/07/2016 8:45pm Height (Calculated Centimeters) 170.641192 cm 08/07/2016 8:45pm Weight (Pounds) 237 pounds 08/07/2016 8:53pm Weight (Ounces) 7.0 oz 08/07/2016 8:53pm Weight (Calculated Grams) 934191.839 gm 08/07/2016 8:53pm Weight (Calculated Kilograms) 107.608834 kilograms 08/07/2016 8:53pm Calculated BMI 37.2 08/07/2016 8:45pm Capillary Refill Capillary Refill Less Than 3 Seconds 08/10/2016 8:00am Results Laboratory Results Test Name Result Units Flags Reference Collection Date/Time Result Date/ Time Comments White Blood Count 10.1 10^3/uL 4.3-11.0 07/22/2016 7:40am 07/22/2016 7: 57am Red Blood Count 4.22 10^6/uL L 4.35-5.85 07/22/2016 7:40am 07/22/2016 7: 57am Hemoglobin 12.5 G/DL L 13.3-17.7 07/22/2016 7:40am 07/22/2016 7:57am Hematocrit 39 % L 40-54 07/22/2016 7:40am 07/22/2016 7:57am Mean Corpuscular Volume 92 FL 80-99 07/22/2016 7:40am 07/22/2016 7: 57am Mean Corpuscular Hemoglobin 30 PG 25-34 07/22/2016 7:40am 07/22/2016 7: 57am Mean Corpuscular Hemoglobin Concent 32 G/DL 32-36 07/22/2016 7:40am 05/2017 7:57am Red Cell Distribution Width 14.9 % H 10.0-14.5 07/22/2016 7:40am 2016 7:57am Platelet Count 238 10^3/uL 130-400 07/22/2016 7:40am 07/22/2016 7:57am Mean Platelet Volume 9.8 FL 7.4-10.4 07/22/2016 7:40am 07/22/2016 7: 57am Prothrombin Time 36.9 SEC H 12.2-14.7 07/22/2016 7:40am 07/22/2016 8: 07am INR Comment 3.7 H 0.8-1.4 07/22/2016 7:40am 07/22/2016 8:07am INTERPRETIVE DATA SUGGESTED THERAPEUTIC RANGE FOR INR'S: VENOUS THROMBOSIS, PULMONARY EMBOLISM, OR PREVENTION OF SYSTEMIC EMBOLISM (EG. IN ATRIAL FIBRILLATION): 2.0 - 3.0 MECHANICAL PROSTHETIC HEART VALVES: 2.5 - 3.5* *NOTE: INR'S UP TO 4.5 MAY BE NECESSARY IN SELECTED GROUPS OF HIGH RISK PATIENTS. [employer] [place] [employer] CONSENSUS CONFERENCE ON ANTITHROMBOTIC THERAPY (2000). Activated Partial Thromboplast Time 39 SEC H 24-35 07/22/2016 7:40am 05/2017 8:07am Urine Color YELLOW 07/22/2016 7:40am 07/22/2016 8:18am Urine Clarity CLEAR 07/22/2016 7:40am 07/22/2016 8:18am Urine pH 6 5-9 07/22/2016 7:40am 07/22/2016 8:18am Urine Specific [place] 1.015 * 1.016-1.022 07/22/2016 7:40am 2016 8:18am Urine Protein 2+ * NEGATIVE 07/22/2016 7:40am 07/22/2016 8:18am Urine Glucose (UA) NEGATIVE NEGATIVE 07/22/2016 7:40am 07/22/2016 8: 18am Urine RBC (Auto) NEGATIVE NEGATIVE 07/22/2016 7:40am 07/22/2016 8: 18am Urine Ketones NEGATIVE NEGATIVE 07/22/2016 7:40am 07/22/2016 8:18am Urine Nitrite NEGATIVE NEGATIVE 07/22/2016 7:40am 07/22/2016 8:18am Urine Bilirubin NEGATIVE NEGATIVE 07/22/2016 7:40am 07/22/2016 8: 18am Urine Urobilinogen 1 MG/DL NORMAL 07/22/2016 7:40am 07/22/2016 8:18am Urine Leukocyte Esterase NEGATIVE NEGATIVE 07/22/2016 7:40am 2016 8:18am Urine RBC NONE /HPF 07/22/2016 7:40am 07/22/2016 8:18am Urine WBC NONE /HPF 07/22/2016 7:40am 07/22/2016 8:18am Urine Bacteria NEGATIVE /HPF 07/22/2016 7:40am 07/22/2016 8:18am Urine Squamous Epithelial Cells NONE /HPF 07/22/2016 7:40am 2016 8:18am Urine Crystals NONE /LPF 07/22/2016 7:40am 07/22/2016 8:18am Urine Casts PRESENT /LPF 07/22/2016 7:40am 07/22/2016 8:18am Urine Hyaline Casts 2-5 /LPF * 07/22/2016 7:40am 07/22/2016 8:18am Urine Mucus NEGATIVE /LPF 07/22/2016 7:40am 07/22/2016 8:18am Urine Other MOD SPERM /HPF * 07/22/2016 7:40am 07/22/2016 8:18am Urine Culture Indicated NO 07/22/2016 7:40am 07/22/2016 8:18am Sodium Level 136 MMOL/L 135-145 07/23/2016 3:53am 07/23/2016 4:43am Potassium Level 4.1 MMOL/L 3.6-5.0 07/23/2016 3:53am 07/23/2016 4:43am Chloride Level 102 MMOL/L 98-107 07/23/2016 3:53am 07/23/2016 4:43am Carbon Dioxide Level 23 MMOL/L 21-32 07/23/2016 3:53am 07/23/2016 4: 43am Anion Gap 11 MMOL/L 5-14 07/23/2016 3:53am 07/23/2016 4:43am Blood Urea Nitrogen 32 MG/DL H 7-18 07/23/2016 3:53am 07/23/2016 4:43am Creatinine 1.29 MG/DL 0.60-1.30 07/23/2016 3:53am 07/23/2016 4:43am BUN/Creatinine Ratio 25 07/23/2016 3:53am 07/23/2016 4:43am Estimat Glomerular Filtration Rate 55 07/23/2016 3:53am 07/23/2016 4:43am GFR INTERPRETIVE DATA UNITS FOR ESTIMATED GFR (eGFR): mL/min/1.73 M2 REFERENCE RANGE FOR ESTIMATED GFR (eGFR) eGFR NORMAL eGFR >60 MODERATELY DECREASED eGFR 30-59 SEVERLY DECREASED eGFR 15-29 KIDNEY FAILURE <15 (OR DIALYSIS) Glucose Level 98 MG/DL 70-105 07/23/2016 3:53am 07/23/2016 4:43am Calcium Level 8.3 MG/DL L 8.5-10.1 07/23/2016 3:53am 07/23/2016 4:43am Total Bilirubin 1.3 MG/DL H 0.1-1.0 07/23/2016 3:53am 07/23/2016 4:43am Alkaline Phosphatase 125 U/L 40-136 07/23/2016 3:53am 07/23/2016 4: 43am Aspartate Amino Transf (AST/SGOT) 469 U/L H 5-34 07/23/2016 3:53am 2016 4:43am Alanine Aminotransferase (ALT/SGPT) 615 U/L H 0-55 07/23/2016 3:53am 06/2017 4:43am Total Protein 5.5 G/DL L 6.4-8.2 07/23/2016 3:53am 07/23/2016 4:43am Albumin 3.4 G/DL 3.2-4.5 07/23/2016 3:53am 07/23/2016 4:43am Triglycerides Level 43 MG/DL <150 07/22/2016 7:40am 07/22/2016 8:16am Cholesterol Level 76 MG/DL < 200 07/22/2016 7:40am 07/22/2016 8:16am HDL Cholesterol 30 MG/DL L 40-60 07/22/2016 7:40am 07/22/2016 8:16am LDL Cholesterol Direct 38 MG/DL 1-129 07/22/2016 7:40am 07/22/2016 8: 16am VLDL Cholesterol 9 MG/DL 5-40 07/22/2016 7:40am 07/22/2016 8:16am Pending Laboratory Results Test Name Collection Date/Time Microbiology Results Procedure Source Result Collection Date/Time Result Date/Time MRSA Screen Nasal MRSA not isolated 07/22/2016 9:22am 07/23/2016 2:06pm Pending Microbiology Results Procedure Source Collection Date/Time Procedures Procedure Status Date Provider(s) LAPAROSCOPIC CHOLECYSTECTOMY Completed 07/28/16 JACQUELINE MEANS MD Transesophageal echocardiography with cardioversion Active 07/22/16 SUMA, TONY Varghese MD Transesophageal echocardiography Active 07/22/16 SUMA,TONY Varghese MD Transesophageal echocardiography with contrast Active 07/22/16 SUMA,TONY Varghese MD Doppler echocardiography color flow mapping Active 07/22/16 SUMA,TONY Varghese MD Bidirectional continuous wave ultrasonic Doppler Active 07/22/16 TONY MURDOCK MD Tracing only of electrocardiogram Completed 07/22/16 SUMA,TONY Varghese MD Tracing only of electrocardiogram Completed 07/22/16 TONY MURDOCK MD Tracing only of electrocardiogram Completed 08/07/16 EVELIO ALBARRAN Encounters Encounter Location Arrival/Admit Date Discharge/Depart Date Attending Provider Discharged Inpatient [facility] 08/07/16 8:01pm 3:28pm RANJIT CHAPMAN MD Departed Surgical Day Care [facility] 07/28/16 6:43am 10:32am JACQUELINE MEANS MD Registered Clinic [facility] 07/27/16 5:36am JACQUELINE MEANS MD Registered Clinic [facility] 07/25/16 12:51pm TONY MURDOCK MD Registered Recurring [facility] 07/24/16 1:28pm TONY MURDOCK MD Departed Surgical Day Care [facility] 07/22/16 7:23am 12:35pm TONY MURDOCK MD Recent Diagnosis Encounter for monitoring coumadin therapy Pedal edema Rib fracture Rib fracture Shortness of breath
[2016-08-27] MEDS ORDERED: FUROSEMIDE 40 MG/4 ML INJ (LASIX) IVP NR (10:06)
[2016-08-27] MEDS ORDERED: ARTIFICIAL TEARS OINT (LACRI-LUBE) 3.5 GM TUBE OU PRN (10:15)
[2016-08-27] MEDS ORDERED: ARTIFICAL TEARS 0.4 ML UNIT DOSE (REFRESH PLUS) OU PRN (10:15)
[2016-08-27] MEDS ORDERED: ACETAMINOPHEN 650 MG SUPP (TYLENOL) PR PRN (10:15)
[2016-08-27] MEDS ORDERED: ONDANSETRON 4 MG/2 ML (SDV) Z0FRAN IVP PRN (10:15)
[2016-08-27] MEDS ORDERED: RT-ALBUTEROL/IPRATROPIUM 3 ML (DUONEB) VIAL INH PRN (10:15)
[2016-08-27] MEDS ORDERED: LORazepam INJ 2 MG/ML (ATIVAN) VIAL IVP PRN (10:15)
[2016-08-27] MEDS ORDERED: PROMETHAZINE INJ 25 MG/ML (PHENERGAN) AMP IVP PRN (10:15)
[2016-08-27] MEDS ORDERED: BISACODYL 10 MG SUPP (DULCOLAX) PR PRN (10:15)
[2016-08-27] MEDS ORDERED: SALIVA STIMULANT MOUTH SPRAY (BIOTENE) 1.5 OZ MM PRN (10:15)
[2016-08-27] MEDS: morphine INJ 4 MG/ML 1 ML (VIAL/SYRINGE) IV PRN ×2 (10:21→16:55)
[2016-08-27 10:50] VITALS: BP 76/43
[2016-08-27] MEDS ORDERED: LIDOCAINE UROJET 2% GEL 10 ML PKG ONE (10:51)
[2016-08-27] MEDS ORDERED: LEVOFLOXACIN 750 MG/150 ML IV 150 ML IV SCH (11:00)
[2016-08-27] MEDS: GLYCOPYRROLATE 0.2 MG/ML (ROBINUL) 2 ML VIAL IV PRN ×2 (11:30→15:32)
[2016-08-27] MEDS: RT-ALBUTEROL/IPRATROPIUM 3 ML (DUONEB) VIAL INH SCH (11:48)
[2016-08-27] MEDS ORDERED: CATHETER FLUSH 10 ML SYR IV PRN (12:00)
[2016-08-27] MEDS ORDERED: LIDOCAINE UROJET 2% GEL 10 ML PKG TOP NR (12:00)
[2016-08-27 15:30] VITALS: BP 106/70
[2016-08-27] MEDS: CATHETER FLUSH 10 ML SYR IV SCH ×2 (15:33→22:00)
[2016-08-27 20:30] VITALS: BP 104/61
[2016-08-28] MEDS: RT-ALBUTEROL/IPRATROPIUM 3 ML (DUONEB) VIAL INH SCH ×4 (07:16→15:34)
[2016-08-28 07:53] VITALS: BP 121/70
--- NOTE | 2016-08-28 10:09 | Discharge Summary-Hospitalist ---
Diagnosis/Chief Complaint Date of Admission Aug 27, 2016 at 09:50 Date of Discharge Admission Diagnosis Assessment: End-of-life process with complete clinical decompensation Congestive heart failure Recurrent pneumonia Respiratory failure Discharge Diagnosis Assessment: End-of-life process with complete clinical decompensation but revived temporarily with Lasix IV Congestive heart failure Recurrent pneumonia Respiratory failure Comfort care measures Provide support to the family Reason Hospital Visit/Course CC: Complete decompensation HPI: This is a 76-year-old white male with past medical history of congestive heart failure and pneumonia with COPD there is had a very rapid decline the last few months but was admitted directly from the nursing facility due to decline status and failure on Levaquin for pneumonia. He was directly admitted to room 508 but he appeared to be gravely ill I spoke with his daughters and they want him to be DO NOT RESUSCITATE and provide comfort care measures only which is reasonable considering how gravely ill he is. Patient is not coherent and appears to be in the active dying process. He has hypotension and overall significant decompensation. note from 08/28/16: Patient did revive since given Lasix IV 1 before comfort care orders were placed but it appears it has settled into ascites and patient is still very end- stage and mildly tachypneic. Long conversation ensued with family and it was decided that he would be enrolled in hospice and would arrange for return back to the group home. Patient is on comfort care now with oxygen supplementation but I doubt that his recovery will be maintained. Due to insurance purposes and not on skilled therapy discharge will likely be delayed while medicated applications filled out since he cannot go home and all support that he needs will be provided at the end-stage of his life. Discharge Summary Discharge Physical Examination Allergies: Coded Allergies: No Known Drug Allergies (Unverified , 07/06/16) Vitals & I&Os Vital Signs Date Time Temp Pulse Resp B/P Pulse Ox O2 Delivery O2 Flow Rate FiO2 08/28/16 07:53 97.4 122 18 121/70 96 Nasal Cannula 2.00 Discharge Home Medications: Active Scripts Active Lorazepam Intensol (Lorazepam) 2 Mg/1 Ml Oral.conc 1 Mg PO Q3HR Morphine Sulfate Concentrate 20mg/ml (Morphine Sulfate) 100 Mg/5 Ml Solution 5 Mg PO Q2H PRN Hydrocodon -Acetaminophen 5-325 (Hydrocodone/Acetaminophen) 1 Each Tablet 1-2 Tab PO 4-6HR PRN Klor-Con 10 (Potassium Chloride) 10 Meq Tablet.er 10 Meq PO BID Cefdinir 300 Mg Capsule 300 Mg PO BID Pantoprazole Sodium 40 Mg Tablet.dr 40 Mg PO BID@07,21 30 Days Furosemide 40 Mg Tablet 40 Mg PO LASIXBID 30 Days Donepezil HCl 10 Mg Tablet 10 Mg PO HS 30 Days Reported Carvedilol 3.125 Mg Tablet 3.125 Mg PO BID Enalapril Maleate 2.5 Mg Tablet 2.5 Mg PO DAILY Paroxetine HCl 40 Mg Tablet 40 Mg PO DAILY Lamotrigine 150 Mg Tablet 150 Mg PO BID Levetiracetam 500 Mg Tablet 1,500 Mg PO BID TAKES 3 (500 MG) TABLETS Aspirin EC (Aspirin) 81 Mg Tablet.dr 81 Mg PO DAILY Warfarin Sodium 5 Mg Tablet 5 Mg PO HS Oyster Shell Calcium Tablet (Calcium Carbonate/Vitamin D3) 1 Each Tablet 600 Mg PO DAILY Instructions to patient/family Please see electonic discharge instructions given to patient. Clinical Quality Measures DVT/VTE Risk/Contraindication: Risk Factor Score Per Nursin RFS Level Per Nursing on Admit: 3=High ADILIA DALE DO Aug 28, 2016 10:09
[2016-08-28] MEDS ORDERED: MORP100S3 PO (10:17)
[2016-08-28] MEDS ORDERED: HYDR-3812 PO (10:17)
[2016-08-28] MEDS ORDERED: LORA2ORA PO (10:17)
[2016-08-28] MEDS: CATHETER FLUSH 10 ML SYR IV SCH ×2 (11:40→14:34)
[2016-08-28 12:00] VITALS: BP 116/71
[2016-08-28] MEDS ORDERED: FUROSEMIDE 40 MG (LASIX) TAB PO SCH (17:00)
[2016-08-28] MEDS: morphine INJ 4 MG/ML 1 ML (VIAL/SYRINGE) IV PRN (17:05)
[2016-08-28 18:02] VITALS: BP 144/84
[2016-08-28] MEDS ORDERED: KCL 10 MEQ TAB (MICRO K) PO SCH (21:00)
[2016-08-28] MEDS ORDERED: CARVEDILOL 3.125 MG (COREG) TABLET PO SCH (21:00)
[2016-08-28] MEDS ORDERED: PANTOPRAZOLE 40 MG (PROTONIX) TAB PO SCH (21:00)
[2016-08-28] MEDS ORDERED: lamoTRIgine 25 MG (LaMICtal) TAB PO SCH (21:00)
[2016-08-28] MEDS ORDERED: DONEPEZIL 10 MG (ARICEPT) TAB PO SCH (21:00)
[2016-08-28] MEDS ORDERED: LEVETIRACETAM 500 MG (KEPPRA) TAB PO SCH (21:00)
[2016-08-29] MEDS ORDERED: CALCIUM CARB + VIT D 600 MG (CALCARB + D) TAB PO SCH (07:00)
[2016-08-29] MEDS ORDERED: ASPIRIN E.C. 81 MG (ECOTRIN) TAB PO SCH (09:00)
[2016-08-29] MEDS ORDERED: PARoxetine 20 MG (PAXIL) TAB PO SCH (09:00)
[2016-08-29] MEDS ORDERED: ENALAPRIL 2.5 MG (VASOTEC) TAB PO SCH (09:00)
--- NOTE | 2016-08-31 16:54 | Physician Query-General Query ---
Physician Query-General Query to Physician: Question: Please document what condition is determined to be the cause of ? Please document a response in the Progress notes or Discharge Summary. Please remember a lack of response to the above will prompt a phone page by CDI/ coding staff In responding to this query, please exercise your independent professional judgment. The purpose of this communication is to more accurately reflect the complexity of your patients condition. The fact that a question is asked does not imply that any particular answer is desired or expected. PHYSICIAN RESPONSE: Based on the clinical findings in the record, please respond to the query above on this document as an addendum. Possible, probable, or questionable diagnosis can be coded for INPATIENTS ONLY. Physician Response: Physician Response congestive heart failure and cardiac arrest If you have questions please contact: Dopster: Ext: Thank you for your time and cooperation. Clinical Rail Car Driver/Dopster This is a permanent part of the medical record ABNER SHIN Aug 31, 2016 16:54 ADILIA DALE DO Sep 01, 2016 10:10
== END 2016-08-28 17:45 | disposition hospice, inpatient (51) | DRG 291 ==
LOC: CSD 09:50
PROVIDERS: ADMIT Internal Medicine; ATTEND Internal Medicine
DX: I50.9 Heart failure, unspecified (principal); J44.0 Chronic obstructive pulmonary disease with (acute) lower respiratory infection; J18.9 Pneumonia, unspecified organism; J96.90 Respiratory failure, unspecified, unspecified whether with hypoxia or hypercapnia; I95.9 Hypotension, unspecified; Z95.5 Presence of coronary angioplasty implant and graft; Z66 Do not resuscitate; Z51.5 Encounter for palliative care; I25.10 Atherosclerotic heart disease of native coronary artery without angina pectoris; E78.00 Pure hypercholesterolemia, unspecified; I10 Essential (primary) hypertension; I73.9 Peripheral vascular disease, unspecified; Z86.73 Personal history of transient ischemic attack (TIA), and cerebral infarction without residual deficits; F03.90 Unspecified dementia, unspecified severity, without behavioral disturbance, psychotic disturbance, mood disturbance, and anxiety; F32.9 Major depressive disorder, single episode, unspecified
CPT/HCPCS: 94640